=== PATIENT | female | born 1945 | race Caucasian/White ===

== ENCOUNTER 2016-11-24 08:09 | Day surgery (SDC) | payer MEDICARE, MEDICAID ==
[~2016-11-24 08:09] MED LIST: Lidocaine 1%/Sod Bicarbonate in NS 8.4% 1 ML Syringe IV PRN; Sodium Chloride 0.9% 10 ML Syringe FLUSH PRN
[2016-11-24] MEDS ORDERED: Lidocaine 1% 2 ML SDV ONE ×2 (09:14→09:15)
[2016-11-24] MEDS ORDERED: Propofol 200 MG/20 ML SDV ONE ×2 (09:14→10:27)
[2016-11-24] MEDS: Lactated Ringers 1,000 ML IV SCH (09:15)
--- NOTE | 2016-11-24 09:47 | PCM.PREANE ---
Preanesthetic Assessment - ANESTHESIA/TRANSFUSION/FAMILY HX Anesthesia/Transfusion History: No Prior Transfusion(s), Prior Anesthesia Family History of Anesthesia Reaction: No - REVIEW OF SYSTEMS Constitutional: Reports: no symptoms MUD MIXER: Reports: seizure (seizure disorder ) Respiratory: Reports: no symptoms Cardiovascular: Reports: no symptoms (history of sick sinus syndrome ) GI: Reports: no symptoms Other: Reports: thyroid problems (hypothyroidism resutling from lithum use as a mood stablizer ) - PHYSICAL ASSESSMENT O2 Sat by Pulse Oximetry: 90 RR: 16 Vital Signs: Last Vital Signs Temp 36.6 C 11/24/16 08:20 Pulse 95 11/24/16 08:20 Resp 16 11/24/16 08:20 BP 146/78 H 11/24/16 08:20 Pulse Ox 90 L 11/24/16 08:20 Height: 1.55 m Weight: 78.018 kg NPO Status Date: 11/23/16 NPO Status Time: 20:00 ASA Class: 3 Mental Status: other (since 17 months seizure dysorder, cerebral defect diagnosed, 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) Airway Class: Mallampati = 3 Dentition: Reports: edentulous Thyro-Mental Finger Breadths: 2 Mouth Opening Finger Breadths: 5 ROM/Head Extension: full Respiratory Status: lungs clear to auscultation bilaterally Cardiovascular Status: regular rate & rhythm, normal S1, S2, no murmur, blood pressure WNL - ALLERGIES Allergies/Adverse Reactions: Allergies Allergy/AdvReac Type Severity Reaction Status Date / Time No Known Allergies Allergy Verified 11/23/16 16:16 - BLOOD Blood Available: No - ANESTHESIA PLAN Preop Beta Saba: Yes Anesthesia Type Planned: MAC - ACKNOWLEDGEMENTS Pt an appropriate candidate for the planned anesthesia: Yes Alternatives and risks of anesthesia discussed w pt/guardian: Yes Pt/Guardian understands and agree with anesthesia plan: Yes PreAnesthesia Questionnaire HEENT History: Reports: None Cardiovascular History: Reports: Arrhythmia, Pacemaker Respiratory History: Reports: None Gastrointestinal History: Reports: Chronic constipation Genitourinary History: Reports: None [employer] History: Reports: None Musculoskeletal History: Reports: None Neurological History: Reports: Seizure, Other (see below) Other Neuro History: Hemiparesis to left side Psychiatric History: Reports: Bipolar Endocrine/Metabolic History: Reports: Hypothyroidism Hematologic History: Reports: None Immunologic History: Reports: None Oncologic (Cancer) History: Reports: Breast Dermatologic History: Reports: None - Past Surgical History HEENT Surgical History: Reports: None Cardiovascular Surgical History: Reports: Pacer Respiratory Surgical History: Reports: None GI Surgical History: Reports: Colonoscopy Female Surgical History: Reports: Mastectomy, Other (see below) Endocrine Surgical History: Reports: None Neurological Surgical History: Reports: None Musculoskeletal Surgical History: Reports: None Oncologic Surgical History: Reports: Mastectomy Other Oncologic Surgeries/Procedures: Bilateral mastectomy Dermatological Surgical History: Reports: None - SUBSTANCE USE Smoking Status *Q: Never Smoker Recreational Drug Use History: No - HOME MEDS Home Medications: Home Meds Bisacodyl [Dulcolax] 10 mg RECTAL DAILY PRN 11/23/16 [History] Calcium Carbonate/Vitamin D3 [Calcium 600 + Vit D Tablet] 1 tab PO DAILY [History] Diazepam [Valium Intensol 5 MG/ML] 5 mg PO ASDIRECTED PRN 11/23/16 [History] Docusate Sodium [Doc-Q-Lace] 100 mg PO BID 11/23/16 [History] Esomeprazole Magnesium [Nexium] 40 mg PO DAILY 11/23/16 [History] Krill/Gatzke-3/Dha/Epa/Lipids [Krill Oil 300 mg Softgel] 300 mg PO BID 11/23/16 [ History] Lactulose 10 gm PO DAILY 11/23/16 [History] Levothyroxine 112 mcg PO DAILY 11/23/16 [History] Metoprolol Tartrate 12.5 mg PO BID 11/23/16 [History] Multivit-Min/FA/Lycopene/Lut [Certavite Sr with Lutein Tab] 1 each PO DAILY 10/11 [History] OXcarbazepine [Trileptal] 600 mg PO BID 11/23/16 [History] PHENobarbital 32.4 mg PO BEDTIME 11/23/16 [History] Psyllium Seed/Aspartame [Natural Fiber Powder] 1 dose PO TID 11/23/16 [History] Sennosides [Senna] 2 tab PO DAILY 11/23/16 [History] Topiramate [Topamax] 50 mg PO TID 11/23/16 [History] risperiDONE [Risperdal] 0.5 mg PO BID 11/23/16 [History] - CURRENT (IN HOUSE) MEDS Current Meds: Current Medications Lactated Ringer's (Ringers, Lactated) 1,000 mls @ 125 mls/hr IV ASDIRECTED BARBARA Last Admin: 11/24/16 09:15 Dose: 125 mls/hr Lidocaine/Sodium Bicarbonate (Buffered Lidocaine 1% In Ns 8.4%) 0.25 ml IV ONETIME PRN PRN Reason: Prior to IV Start Sodium Chloride (Saline Flush) 10 ml FLUSH ASDIRECTED PRN PRN Reason: Keep Vein Open Discontinued Medications Lidocaine HCl (Lidocaine 1%) Confirm Administered Dose 2 ml .ROUTE .STK-MED ONE Stop: 11/24/16 09:15 Lidocaine HCl (Lidocaine 1%) Confirm Administered Dose 2 ml .ROUTE .STK-MED ONE Stop: 11/24/16 09:16 Propofol (Diprivan 20 Ml) Confirm Administered Dose 200 mg .ROUTE .STK-MED ONE Stop: 11/24/16 09:15
--- NOTE | 2016-11-24 11:00 | PCM48HPAN ---
Post Anesthesia Note - EVALUATION WITHIN 48HRS OF ANESTHETIC Vital Signs in Normal Range: Yes Patient Participated in Evaluation: Yes Respiratory Function Stable: Yes Airway Patent: Yes Cardiovascular Function Stable: Yes Hydration Status Stable: Yes Pain Control Satisfactory: Yes Nausea and Vomiting Control Satisfactory: Yes Mental Status Recovered: Yes (at patient baseline )
--- NOTE | 2016-11-24 11:00 | PCM.OPNOTE ---
- General Post-Op/Procedure Note Date of Surgery/Procedure: 11/24/16 Operative Procedure(s): colonoscopy to cecum Pre Op Diagnosis: abnormal CT scan of abdomen showing lesion in the colon Post-Op Diagnosis: Same Anesthesia Technique: MAC Primary Surgeon: Johnnie Gomez EBL in mLs: 0 Complications: None Condition: Good
[2016-11-24 11:01] VITALS: BP 132/45
--- NOTE | 2016-11-24 11:09 | CR ---
Abdomen: Supine view of the abdomen was obtained. Colonoscope is identified terminating in the approximate transverse colon. Increased gas within the colon compatible with the procedure. No additional abnormality is appreciated on this limited study. Impression: 1. Findings as noted above. Diagnostic code #2
--- NOTE | 2016-11-25 07:22 | OR ---
DATE OF OPERATION: 11/24/2016 SURGEON: Johnnie Gomez MD PREOPERATIVE DIAGNOSIS: Abnormal CT scan showing possible obstructive lesion in the sigmoid colon. POSTOPERATIVE DIAGNOSIS: Abnormal CT scan showing possible obstructive lesion in the sigmoid colon. OPERATION PERFORMED: Colonoscopy to the cecum. FINDINGS: A large sigmoid loop, but no angiodysplasia, neoplasia, large tumor masses, ulcerations, or diverticulum. ANESTHESIA: Done under IV sedation. RECOMMENDATION: No further screening colonoscopies. DESCRIPTION OF PROCEDURE: The patient was taken to the endoscopy suite, connected to monitoring equipment and given IV sedation. The patient was placed in the left lateral position. The perianal area showed some prodding hemorrhoids. Rectal exam showed good sphincter tone. A video Olympus colonoscope was introduced without problem up to what appeared to be the transverse colon. The anatomy was obscured and the scope would not advance further. A flat plate of the abdomen then demonstrated the large loop in the sigmoid. The patient was then placed in left lateral position, by external pressure, was able to advance the scope into the cecum. Prep was adequate. [place] [employer] score grade B throughout the colon. The scope was slowly withdrawn showing the cecum, ascending colon, transverse colon, descending colon, sigmoid colon, and rectum. Retroflexed view was not done. The patient tolerated the procedure, sent to recovery room in a stable condition. She will be followed up by Dr. Estrada. ESTIMATED BLOOD LOSS: MMODAL /[id number]
== END 2016-11-24 11:31 | disposition home or self-care (01) ==
LOC: JD.SDS 08:09
PROVIDERS: ATTEND Surgery
PROC: 0DJD8ZZ Inspection of Lower Intestinal Tract, Via Natural or Artificial Opening Endoscopic (ICD-10-PCS; principal; 2016-11-24)
DX: K56.2 Volvulus (principal); F31.9 Bipolar disorder, unspecified; G81.94 Hemiplegia, unspecified affecting left nondominant side; F79 Unspecified intellectual disabilities; G40.909 Epilepsy, unspecified, not intractable, without status epilepticus; I49.5 Sick sinus syndrome; E03.9 Hypothyroidism, unspecified; K59.09 Other constipation; Z85.3 Personal history of malignant neoplasm of breast; Z95.0 Presence of cardiac pacemaker; Z90.13 Acquired absence of bilateral breasts and nipples; Z98.890 Other specified postprocedural states; Z79.899 Other long term (current) drug therapy
CPT/HCPCS: 45378; 74000; J7120; J2704

== ENCOUNTER 2020-04-01 17:02 | Inpatient (IN) | payer MEDICARE, MEDICAID ==
--- NOTE | 2020-04-01 17:27 | EDM.PDOC ---
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 Estrada). Apparently she has had a 30 pound weight loss over the last 3 months. She is not eaten much at all for the last week. She is an obvious declining level of health. Her CODE STATUS is DO NOT RESUSCITATE do not ventilate. [address] Estrada performed was a chemistry panel which revealed severe hypernatremia with a sodium of 164. The other tests that he ordered are send outs to [place] and will not be available until tomorrow. Patient is nonverbal and not able to offer any useful information. She is on a bowel care regimen and did have a normal soft bowel movement this morning. She wears depends and is incontinent of urine. He has a history of urinary tract infections. No documented fevers. No cough or sputum production. Onset: Unknown/Unsure, Other (There is to have a chronic underlying illness with a 30 pound weight loss over the last 3 months.) Duration: Chronic, Getting Worse (Not been able to eat or drink much at all for the last week.) Location: Reports: Generalized Quality: Reports: Other (Suffering from dehydration and severe hypernatremia) Severity: Severe Improves with: Reports: None Worsens with: Reports: None Context: Reports: Other (Patient is mentally handicapped and refuses food and fluids at this time.). Denies: Activity, Exercise, Lifting, Sick Contact, Trauma Associated Symptoms: Reports: Other (Anorexia). Denies: Nausea/Vomiting, Rash, Seizure, Shortness of Breath, Syncope Treatments HR OPERATIONS ADVISOR: Reports: Other (see below) (None.) - Related Data Allergies Allergy/AdvReac Type Severity Reaction Status Date / Time No Known Allergies Allergy Verified 04/01/20 17:08 Home Meds: Home Meds Bisacodyl [Dulcolax] 10 mg RECTAL DAILY PRN 11/23/16 [History] Calcium Carbonate/Vitamin D3 [Calcium 600 + Vit D Tablet] 1 tab PO DAILY 11/23/16 [History] Diazepam [Valium Intensol 5 MG/ML] 5 mg PO ASDIRECTED PRN 11/23/16 [History] Docusate Sodium [Doc-Q-Lace] 100 mg PO BID 11/23/16 [History] Esomeprazole Magnesium [Nexium] 40 mg PO DAILY 11/23/16 [History] Krill/[place]-3/Dha/Epa/Lipids [Krill Oil 300 mg Softgel] 300 mg PO BID 11/23/16 [History] Lactulose 10 gm PO DAILY 11/23/16 [History] Levothyroxine 100 mcg PO DAILY 11/23/16 [History] Metoprolol Tartrate 12.5 mg PO BID 11/23/16 [History] Multivit-Min/FA/Lycopen/Lutein [Certavite Sr with Lutein Tab] 1 each PO DAILY 11/23/16 [History] OXcarbazepine [Trileptal] 600 mg PO BID 11/23/16 [History] PHENobarbital 97.2 mg PO BEDTIME 11/23/16 [History] Psyllium Seed/Aspartame [Natural Fiber Powder] 1 dose PO TID 11/23/16 [History] Sennosides [Senna] 2 tab PO DAILY PRN 11/23/16 [History] Topiramate [Topamax] 50 mg PO TID 11/23/16 [History] risperiDONE [Risperdal] 0.5 mg PO BID 11/23/16 [History] Past Medical History HEENT History: Reports: Other (See Below) Other HEENT History: Limited communication/vocabulary Cardiovascular History: Reports: Arrhythmia, Pacemaker Respiratory History: Reports: None Gastrointestinal History: Reports: Chronic Constipation Genitourinary History: Reports: None MACHINE SET UP OPERATOR History: Reports: None Musculoskeletal History: Reports: Other (See Below) Other Musculoskeletal History: bony deformities, flat feet, abnormal posture Neurological History: Reports: Seizure, Other (See Below) Other Neuro History: 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 Endocrine/Metabolic History: Reports: Hypothyroidism, Other (See Below) Other Endocrine/Metabolic History: Hypernatremia Hematologic History: Reports: None Immunologic History: Reports: None Oncologic (Cancer) History: Reports: Breast Dermatologic History: Reports: None - Infectious Disease History Infectious Disease History: Reports: None - Past Surgical History HEENT Surgical History: Reports: None Cardiovascular Surgical History: Reports: Pacer Respiratory Surgical History: Reports: None Female Surgical History: Reports: Mastectomy, Other (See Below) Endocrine Surgical History: Reports: None Musculoskeletal Surgical History: Reports: None Oncologic Surgical History: Reports: Mastectomy Other Oncologic Surgeries/Procedures: Bilateral mastectomy Dermatological Surgical History: Reports: None Social & Family History - Family History Family Medical History: Noncontributory - Tobacco Use Smoking Status *Q: Never Smoker - Caffeine Use Caffeine Use: Reports: None - Recreational Drug Use Recreational Drug Use: No - Living Situation & Occupation Living situation: Reports: Single Occupation: Disabled Social History Comment: He lives at able alf ED ROS GENERAL - Review of Systems Review Of Systems: See Below Constitutional: Reports: Malaise, Weakness, Fatigue, Weight Loss (30 pound weight loss apparently over the last [address] Estrada`s office). Denies: Fever, Chills HEENT: Reports: No Symptoms Respiratory: Denies: Cough, Sputum Cardiovascular: Denies: Blood Pressure Problem, Claudication, Orthopnea Endocrine: Reports: Other (Anorexia) GI/Abdominal: Reports: Anorexia : Reports: No Symptoms Musculoskeletal: Reports: Other (Does not walk. She is lifted by Jan lift and is otherwise wheelchair-bound. She has flexion contractures of hands wrists elbows knees and hips.) Skin: Reports: No Symptoms Neurological: Reports: Other (Winters is mentally handicapped. She is nonverbal) Hematologic/Lymphatic: Reports: No Symptoms Immunologic: Reports: No Symptoms ED EXAM, GENERAL - Physical Exam Exam: See Below Exam Limited By: Physical Impairment (Is mentally handicapped and nonverbal.) General Appearance: Lethargic Eye Exam: Bilateral Eye: Normal Inspection (No scleral icterus or blepharal pallor.) Throat/Mouth: Other (Is very dry and coated.) Head: Atraumatic ( No signs of oropharyngeal infection.), Normocephalic Neck: Normal Inspection, Limited Range of Motion (She appears to have very limited range of motion of her cervical spine). No: Full Range of Motion ( partially due to resistance but I believe partially due to underlying arthritic change.), Carotid Bruit, Lymphadenopathy (L), Lymphadenopathy (R), Thyromegaly Respiratory/Chest: Lungs Clear, Normal Breath Sounds, Respiratory Distress (Kidney at rest 20/min. O2 sats 98% on room air), Decreased Breath Sounds (Breast as the lower 20% of the lungs posteriorly.) Cardiovascular: No Edema, No Gallop (And his tachycardia at rest.), No JVD, No Murmur, No Rub, Tachycardia, Other (Pacemaker left upper anterior chest.). No: Normal Peripheral Pulses Peripheral Pulses: 2+: Carotid (L), Carotid (R), Posterior Tibial (L), Posterior Tibial (R), Dorsalis Pedis (L), Dorsalis Pedis (R) GI/Abdominal: Normal Bowel Sounds, Soft, Non-Tender, No Organomegaly, No Abnormal Bruit, No Mass, Pelvis Stable Back Exam: Other (These deformities of the back. Lying in the position left lateral decubitus on exam.) Extremities: No Pedal Edema, Other (Extreme contractures of knees hips wrists elbows) Neurological: Other (Unable to ascertain alertness but she does make eye contact but she is nonverbal.) Skin Exam: Warm, Intact, Normal Color, No Rash, Other (Not feel like she is warm to palpation.) Course - Vital Signs Last Recorded V/S: Last Vital Signs Temp 35.7 C L 04/01/20 17:12 Pulse 113 H 04/01/20 17:12 Resp 20 04/01/20 17:12 BP 119/75 04/01/20 17:12 Pulse Ox 98 04/01/20 17:12 - Orders/Labs/Meds Orders: Active Orders 24 hr Category Date Time Status EKG Documentation Completion [RC] STAT Care 04/01/20 17:25 Active Hough Catheter Insertion [Insert Urinary Catheter] [OM. Care 04/01/20 18:30 Ordered PC] Q24H Urinary Catheter Assessment [RC] ASDIRECTED Care 04/01/20 19:03 Active C-REACTIVE PROTEIN [CHEM] Stat Lab 04/01/20 17:40 Results CARBAMAZEPINE [REF] Stat Lab 04/01/20 17:40 Received COMPREHENSIVE METABOLIC PN,CMP [CHEM] Stat Lab 04/01/20 17:40 Results CORONAVIRUS COVID-19 CONNER [MOLEC] Stat Lab 04/01/20 18:20 Received INR,PT,PROTHROMBIN TIME [COAG] Stat Lab 04/01/20 18:27 Received LIPASE [CHEM] Stat Lab 04/01/20 17:40 Results MAGNESIUM [CHEM] Stat Lab 04/01/20 17:40 Results OSMOLALITY,SERUM [CHEM] Stat Lab 04/01/20 17:40 Results PRO B-TYPE NATRIUR PEPT,BNPPRO [CHEM] Stat Lab 04/01/20 17:40 Received PTT,PARTIAL THROMBOPLSTIN TIME [COAG] Stat Lab 04/01/20 18:27 Received T4 FREE [CHEM] Stat Lab 04/01/20 17:40 Results TROPONIN I [CHEM] Stat Lab 04/01/20 17:40 Results TSH [CHEM] Stat Lab 04/01/20 17:40 Results Dextrose 5%-0.45% NaCl [Dextrose 5%-1/2 NS] 1,000 ml Med 04/01/20 17:30 Active IV ASDIRECTED Medication Orders Dextrose/Sodium Chloride (Dextrose 5%-1/2 Ns) 1,000 mls @ 125 mls/hr IV ASDIRECTED BARBARA Last Admin: 04/01/20 17:54 Dose: 125 mls/hr Documented by: DARIUS Labs: Laboratory Tests 04/01/20 04/01/20 04/01/20 Range/Units 17:40 17:40 17:40 WBC 7.92 (3.98-10.04) K/mm3 RBC 4.04 (3.98-5.22) M/mm3 Hgb 14.5 D (11.2-15.7) gm/dl Hct 45.2 H (34.1-44.9) % MCV 111.9 H D (79.4-94.8) fl MCH 35.9 H (25.6-32.2) pg MCHC 32.1 L (32.2-35.5) g/dl RDW Std Deviation 61.2 H (36.4-46.3) fL Plt Count 346 D (182-369) K/mm3 MPV 10.9 (9.4-12.3) fl Neut % (Auto) 67.9 (34.0-71.1) % Lymph % (Auto) 22.5 (19.3-51.7) % [place] % (Auto) 8.8 (4.7-12.5) % Eos % (Auto) 0.1 L (0.7-5.8) Baso % (Auto) 0.6 (0.1-1.2) % Neut # (Auto) 5.37 (1.56-6.13) K/mm3 Lymph # (Auto) 1.78 (1.18-3.74) K/mm3 [place] # (Auto) 0.70 H (0.24-0.36) K/mm3 Eos # (Auto) 0.01 L (0.04-0.36) K/mm3 Baso # (Auto) 0.05 (0.01-0.08) K/mm3 Manual Slide Review Abnormal smear Sodium 162 H* D (136-145) mEq/L Potassium 4.5 (3.5-5.1) mEq/L Chloride 120 H (98-107) mEq/L Carbon Dioxide 17 L (21-32) mEq/L Anion Gap 29.5 H (5-15) BUN 61 H D (7-18) mg/dL Creatinine 2.4 H D (0.55-1.02) mg/dL Est Cr Clr Drug Dosing 15.28 mL/min Estimated GFR (MDRD) 20 (>60) mL/min BUN/Creatinine Ratio 25.4 H (14-18) Glucose 118 H (83-115) mg/dL Lactic Acid 2.3 H* (0.4-2.0) mmol/L Calcium 11.2 H D (8.5-10.1) mg/dL Magnesium 2.6 H (1.8-2.4) mg/dl Total Bilirubin 0.3 (0.2-1.0) mg/dL AST 28 (15-37) U/L ALT 39 (14-59) U/L Alkaline Phosphatase 93 (46-116) U/L Troponin I < 0.017 (0.00-0.056) ng/mL C-Reactive Protein <0.2 (<1.0) mg/dL Total Protein 7.6 (6.4-8.2) g/dl Albumin 3.0 L (3.4-5.0) g/dl Globulin 4.6 gm/dL Albumin/Globulin Ratio 0.7 L (1-2) Lipase 103 (73-393) U/L Free T4 0.48 L (0.76-1.46) ng/dL TSH 3rd Generation 3.828 H (0.358-3.74) uIU/mL Urine Color (Yellow) Urine Appearance (Clear) Urine pH (5.0-8.0) Ur Specific [place] (1.005-1.030) Urine Protein (Negative) Urine Glucose (UA) (Negative) Urine Ketones (Negative) Urine Occult Blood (Negative) Urine Nitrite (Negative) Urine Bilirubin (Negative) Urine Urobilinogen (0.2-1.0) Ur Leukocyte Esterase (Negative) Urine RBC (0-5) /hpf Urine WBC (0-5) /hpf Ur Squamous Epith Cells (0-5) /hpf Urine Bacteria (FEW) /hpf Urine Mucus (FEW) /hpf Ur Random Sodium (40-220) mEq/L 04/01/20 04/01/20 Range/Units 17:40 17:40 WBC (3.98-10.04) K/mm3 RBC (3.98-5.22) M/mm3 Hgb (11.2-15.7) gm/dl Hct (34.1-44.9) % MCV (79.4-94.8) fl MCH (25.6-32.2) pg MCHC (32.2-35.5) g/dl RDW Std Deviation (36.4-46.3) fL Plt Count (182-369) K/mm3 MPV (9.4-12.3) fl Neut % (Auto) (34.0-71.1) % Lymph % (Auto) (19.3-51.7) % [place] % (Auto) (4.7-12.5) % Eos % (Auto) (0.7-5.8) Baso % (Auto) (0.1-1.2) % Neut # (Auto) (1.56-6.13) K/mm3 Lymph # (Auto) (1.18-3.74) K/mm3 [place] # (Auto) (0.24-0.36) K/mm3 Eos # (Auto) (0.04-0.36) K/mm3 Baso # (Auto) (0.01-0.08) K/mm3 Manual Slide Review Sodium (136-145) mEq/L Potassium (3.5-5.1) mEq/L Chloride (98-107) mEq/L Carbon Dioxide (21-32) mEq/L Anion Gap (5-15) BUN (7-18) mg/dL Creatinine (0.55-1.02) mg/dL Est Cr Clr Drug Dosing mL/min Estimated GFR (MDRD) (>60) mL/min BUN/Creatinine Ratio (14-18) Glucose (83-115) mg/dL Lactic Acid (0.4-2.0) mmol/L Calcium (8.5-10.1) mg/dL Magnesium (1.8-2.4) mg/dl Total Bilirubin (0.2-1.0) mg/dL AST (15-37) U/L ALT (14-59) U/L Alkaline Phosphatase (46-116) U/L Troponin I (0.00-0.056) ng/mL C-Reactive Protein (<1.0) mg/dL Total Protein (6.4-8.2) g/dl Albumin (3.4-5.0) g/dl Globulin gm/dL Albumin/Globulin Ratio (1-2) Lipase (73-393) U/L Free T4 (0.76-1.46) ng/dL TSH 3rd Generation (0.358-3.74) uIU/mL Urine Color Dark yellow (Yellow) Urine Appearance Slt cloudy H (Clear) Urine pH 5.0 (5.0-8.0) Ur Specific [place] > or = 1.030 (1.005-1.030) Urine Protein 1+ H (Negative) Urine Glucose (UA) Negative (Negative) Urine Ketones Negative (Negative) Urine Occult Blood Negative (Negative) Urine Nitrite Negative (Negative) Urine Bilirubin 1+ H (Negative) Urine Urobilinogen 0.2 (0.2-1.0) Ur Leukocyte Esterase 1+ H (Negative) Urine RBC 0-5 (0-5) /hpf Urine WBC 40-50 H (0-5) /hpf Ur Squamous Epith Cells 0-5 (0-5) /hpf Urine Bacteria Many H (FEW) /hpf Urine Mucus Not seen (FEW) /hpf Ur Random Sodium 26 L (40-220) mEq/L Meds: Medications Generic Name Dose Route Start Last Admin Trade Name Freq PRN Reason Stop Dose Admin Dextrose/Sodium Chloride 1,000 mls @ 125 mls/hr 04/01/20 17:30 04/01/20 17:54 Dextrose 5%-1/2 Ns IV 125 mls/hr ASDIRECTED BARBARA Administration - Radiology Interpretation Free Text/Narrative:: 75-year-old female presents to the ED from her primary care physician's office--Dr Estrada. She has a history of not eating or drinking much for the last week. She is severely mentally handicapped since . She has a documented 30 pound weight loss over the last 3 months. This is according to Dr. Estrada. Patient is nonverbal and therefore not able to provide any useful history. A bit of information was obtained from 1 of her care providers that attended during the ED. Lamination reveals her to be afebrile. She does make eye contact. She lies in the left lateral position and has flexion contractures of hands wrists elbows and shoulders. She also has flexion contractures of her hips and knees. She is lifted by a Jan lift. She is wheelchair or bedbound. [address] of [address] labs [address] Dr. Estrada identified to be abnormal was a serum sodium of 164 i.e. severe hyponatremia which carries a very grave prognosis. She has had some difficulties with thyroid dysfunction but Dr. Estrada was not able to obtain the results today as they are send outs to [place]. Concern is that she may have an underlying malignancy to contribute to her 30 pound weight loss over the last 3 months versus malnutrition. She lives in a alf setting. Her CODE STATUS is DO NOT RESUSCITATE or DO NOT INTUBATE. Plan IV will be D5 one half normal saline at 125 mils per hour to slowly bring down her serum sodium level. Other labs of course have been ordered and a chest x-ray and ECG. - Re-Assessments/Exams Free Text/Narrative Re-Assessment/Exam: 04/01/20 18:16 White count is normal at 7.92. Differential shows 68% neutrophils on the auto differential. Hemoglobin is 14.5 with hematocrit of 45.2. MCV is markedly elevated at 111.9. Platelet counts 346,000. Manual slide being reviewed. Urinalysis obtained by catheterization shows slightly cloudy urine with 1+ proteinuria 1+ bilirubin 1+ leukocyte esterase. The micro is pending x-ray was done portably but was difficult due to the position of the patient. It turned out be more of a lateral x-ray than it did AP. The lungs are clear with no acute parenchymal changes. Tortuous thoracic aorta appreciated. Heart size appears to be within normal limits per portable technique. Pacemaker is noted left upper anterior chest. 04/01/20 18:41 laboratory called over indicates that her lactic acid is 2.3. 04/01/20 19:23 This slide reveals moderate macrocytosis. no band cells reported. Catherine confirms an elevated sodium at 162. Potassium is 4.5. Chloride is 120 with a bicarb of 17. Anion gap is elevated at 29.5. BUN is 61 with a creatinine of 2.4. GFR is down to 20 i.e. stage IV renal insufficiency. Glucose is 118. Serum osmolality is pending. Lactic acid is elevated at 2.3. Calcium is elevated at 11.2. And ionized calcium will be ordered. Magnesium is elevated at 2.6. Liver function is normal. Troponin I is less than 0.017. C- reactive protein is less than 0.2. Total protein is 7.6 with an albumin fraction low at 3.0. Globulin is 4.6. Lipase is 103. Free T4 is 0.48 which is very low. TSH is 3.828 which is mildly elevated indicating subclinical hypothyroidism. Random urine sodium is 26. The micro shows 1+ leukocyte gideon rase and 40-50 white blood cells per high-power field with many bacteria appreciated. Urine culture ordered. Will be started on Rocephin 2 g intravenously at that time for urinary tract infection. We will be D5 one half normal saline at 125 mils per hour to slowly lower her serum sodium level. Will be admitted to the [facility] floor per Dr. oCrdero. I will write the bridge orders at this time. Time with a serum sodium of 162 the prognosis is extremely guarded. The 30-day mortality approaches 100%. Departure - Departure Time of Disposition: 19:48 Disposition: Admitted As Inpatient 66 Condition: Critical Clinical Impression: Hypernatremia, Metabolic acidosis, Subclinical hypothyroidism - Discharge Information *PRESCRIPTION DRUG MONITORING PROGRAM REVIEWED*: Not Applicable *COPY OF PRESCRIPTION DRUG MONITORING REPORT IN PATIENT AICHA: Not Applicable Referrals: Mark Estrada MD [Primary Care Provider] - Forms: ED Department Discharge Sepsis Event Note (ED) - Evaluation Sepsis Screening Result: Possible Sepsis Risk - Focused Exam Vital Signs: Vital Signs Temp Pulse Resp BP Pulse Ox 04/01/20 17:12 35.7 C L 113 H 20 119/75 98 - My Orders Last 24 Hours: My Active Orders 04/01/20 17:25 EKG Documentation Completion [RC] STAT 04/01/20 17:30 Dextrose 5%-0.45% NaCl [Dextrose 5%-1/2 NS] 1,000 ml IV ASDIRECTED 04/01/20 17:40 C-REACTIVE PROTEIN [CHEM] Stat CARBAMAZEPINE [REF] Stat COMPREHENSIVE METABOLIC PN,CMP [CHEM] Stat LIPASE [CHEM] Stat MAGNESIUM [CHEM] Stat OSMOLALITY,SERUM [CHEM] Stat PRO B-TYPE NATRIUR PEPT,BNPPRO [CHEM] Stat T4 FREE [CHEM] Stat TROPONIN I [CHEM] Stat TSH [CHEM] Stat 04/01/20 18:20 CORONAVIRUS COVID-19 CONNER [MOLEC] Stat 04/01/20 18:27 INR,PT,PROTHROMBIN TIME [COAG] Stat PTT,PARTIAL THROMBOPLSTIN TIME [COAG] Stat 04/01/20 18:30 Hough Catheter Insertion [Insert Urinary Catheter] [OM.PC] Q24H 04/01/20 19:03 Urinary Catheter Assessment [RC] ASDIRECTED - Assessment/Plan Last 24 Hours: My Active Orders 04/01/20 17:25 EKG Documentation Completion [RC] STAT 04/01/20 17:30 Dextrose 5%-0.45% NaCl [Dextrose 5%-1/2 NS] 1,000 ml IV ASDIRECTED 04/01/20 17:40 C-REACTIVE PROTEIN [CHEM] Stat CARBAMAZEPINE [REF] Stat COMPREHENSIVE METABOLIC PN,CMP [CHEM] Stat LIPASE [CHEM] Stat MAGNESIUM [CHEM] Stat OSMOLALITY,SERUM [CHEM] Stat PRO B-TYPE NATRIUR PEPT,BNPPRO [CHEM] Stat T4 FREE [CHEM] Stat TROPONIN I [CHEM] Stat TSH [CHEM] Stat 04/01/20 18:20 CORONAVIRUS COVID-19 CONNER [MOLEC] Stat 04/01/20 18:27 INR,PT,PROTHROMBIN TIME [COAG] Stat PTT,PARTIAL THROMBOPLSTIN TIME [COAG] Stat 04/01/20 18:30 Hough Catheter Insertion [Insert Urinary Catheter] [OM.PC] Q24H 04/01/20 19:03 Urinary Catheter Assessment [RC] ASDIRECTED
[2020-04-01] MEDS ORDERED: Dextrose 5%-0.45% NaCl 1,000 ML IV SCH ×2 (17:30→22:15)
--- NOTE | 2020-04-01 18:09 | CR ---
Chest: Frontal view of the chest was obtained. Comparison: Prior chest x-ray of 09/20/12. Lungs are clear with no acute parenchymal change. Tortuous thoracic aorta is seen. Heart size appears within normal limits for portable technique. Pacemaker is noted. Bony structures are grossly intact. Impression: 1. Nothing acute is appreciated on portable chest x-ray. Diagnostic code #2 This report was dictated in MDT
[2020-04-01] MEDS ORDERED: Acetaminophen 325 MG Tab PO PRN (22:03)
[2020-04-01] MEDS ORDERED: Ondansetron 4 MG/2 ML SDV IVPUSH PRN (22:05)
[2020-04-01] MEDS ORDERED: Metoprolol Tartrate 25 MG Tab PO ONE (22:06)
[2020-04-02] MEDS: Dextrose 5% in Water 1,000 ML IV SCH ×3 (02:34→21:54)
--- NOTE | 2020-04-02 03:01 | PCM.HP.2 ---
H&P History of Present Illness - General Date of Service: 04/01/20 Admit Problem/Dx: Admission Diagnosis/Problem Admission Diagnosis/Problem Hypernatremia - History of Present Illness Initial Comments - Free Text/Narative: PATIENT IS NON-VERBAL SO H&P OBTAINED BY CHART REVIEW AND VERBAL STAFF REPORT 75-year-old female with past medical history of mental disability who is sent to the ED from her PCPs office for abnormal labs. As per transfer note patient was getting routine labs performed and a Na level of 164 was identified for which she was referred here. Of note: - Oral intake has been minimal in the past week - Has scheduled bowel regimen, with last BM this morning - No abnormal vital signs have been documented - Related Data Allergies/Adverse Reactions: Allergies Allergy/AdvReac Type Severity Reaction Status Date / Time No Known Allergies Allergy Verified 04/02/20 03:11 Home Medications: Home Meds Calcium Carbonate/Vitamin D3 [Calcium 600 + Vit D Tablet] 1 tab PO DAILY 11/23/16 [History] Diazepam [Valium Intensol 5 MG/ML] 5 mg PO ASDIRECTED PRN 11/23/16 [History] Docusate Sodium [Doc-Q-Lace] 100 mg PO BID 11/23/16 [History] Krill/[place]-3/Dha/Epa/Lipids [Krill Oil 300 mg Softgel] 300 mg PO BID 11/23/16 [History] Lactulose 10 gm PO DAILY 11/23/16 [History] Levothyroxine 100 mcg PO DAILY 11/23/16 [History] Metoprolol Tartrate 12.5 mg PO BID 11/23/16 [History] Multivit-Min/FA/Lycopen/Lutein [Certavite Sr with Lutein Tab] 1 each PO DAILY 11/23/16 [History] OXcarbazepine [Trileptal] 600 mg PO BID 11/23/16 [History] PHENobarbital 97.2 mg PO BEDTIME 11/23/16 [History] Sennosides [Senna] 2 tab PO DAILY 11/23/16 [History] Omeprazole 20 mg PO DAILY 04/01/20 [History] Urea [Urea 20% Crm] 1 applic TOP BEDTIME 04/01/20 [History] Valbenazine Tosylate [Ingrezza] 40 mg PO DAILY 04/01/20 [History] Acetaminophen [Acetaminophen ER] 650 mg PO TID 04/02/20 [History] Past Medical History HEENT History: Reports: Other (See Below) Other HEENT History: Limited communication/vocabulary Cardiovascular History: Reports: Arrhythmia, Pacemaker Respiratory History: Reports: None Gastrointestinal History: Reports: Chronic Constipation Genitourinary History: Reports: None [employer]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 Endocrine/Metabolic History: Reports: None, Hypothyroidism, Other (See Below) Other Endocrine/Metabolic History: Hypernatremia Hematologic History: Reports: None Immunologic History: Reports: None Oncologic (Cancer) History: Reports: Breast Dermatologic History: Reports: None - Infectious Disease History Infectious Disease History: Reports: None - Past Surgical History Head Surgeries/Procedures: Reports: None HEENT Surgical History: Reports: None Cardiovascular Surgical History: Reports: Pacer Respiratory Surgical History: Reports: None GI Surgical History: Reports: None Female Surgical History: Reports: Mastectomy, Other (See Below) Endocrine Surgical History: Reports: None Neurological Surgical History: Reports: None Musculoskeletal Surgical History: Reports: None Oncologic Surgical History: Reports: None, Mastectomy Other Oncologic Surgeries/Procedures: Bilateral mastectomy Dermatological Surgical History: Reports: None Social & Family History - Family History Family Medical History: Noncontributory - Tobacco Use Smoking Status *Q: Never Smoker Second Hand Smoke Exposure: No - Caffeine Use Caffeine Use: Reports: None - Recreational Drug Use Recreational Drug Use: No - Living Situation & Occupation Living situation: Reports: Single Occupation: Disabled H&P Review of Systems - Review of Systems: Review Of Systems: Unable To Obtain Reason Not Obtained: Patient is non verbal Exam - Exam Exam: See Below - Vital Signs Weight: 53.025 kg - Exam General: Lethargic HEENT: Other (oral mucosa is very dry, no lesions are appreciated) Neck: Trachea Midline. No: Full Range of Motion, Lymphadenopathy Lungs: Clear to Auscultation, Decreased Breath Sounds. No: Crackles, Rales, Rhonchi, Rub, Stridor Cardiovascular: Regular Rhythm, Tachycardia. No: Systolic Murmur, Diastolic Murmur, Rubs, Gallop/S3, Gallop/S4 GI/Abdominal Exam: Soft. No: Normal Bowel Sounds, Distended, Guarding, Rigid Extremities: Other (contractures of knees hips wrists elbows) Skin: Dry - Patient Data Result Diagrams: 04/01/20 17:40 04/01/20 17:40 Sepsis Event Note - Evaluation Sepsis Screening Result: No Definite Risk Current Stage of Sepsis: Ruled Out Reason for Ruling Out Sepsis: Lactic acidosis is secondary to hypovolemia - Problem List (1) Hyperosmolality and hypernatremia SNOMED Code(s): 710458166 ICD Code: E87.0 - HYPEROSMOLALITY AND HYPERNATREMIA Status: Acute Current Visit: Yes (2) Hypernatremia SNOMED Code(s): 368831780 ICD Code: E87.0 - HYPEROSMOLALITY AND HYPERNATREMIA Status: Acute Current Visit: Yes (3) High anion gap metabolic acidosis SNOMED Code(s): 60441873 ICD Code: E87.2 - ACIDOSIS Status: Acute Current Visit: Yes (4) Metabolic alkalosis SNOMED Code(s): 5315936 ICD Code: E87.3 - ALKALOSIS Status: Acute Current Visit: Yes (5) Acute kidney injury SNOMED Code(s): 71630676, 60491970 ICD Code: N17.9 - ACUTE KIDNEY FAILURE, UNSPECIFIED Status: Acute Current Visit: Yes (6) Chronic kidney disease (CKD), stage III (moderate) SNOMED Code(s): 269089301 ICD Code: N18.3 - CHRONIC KIDNEY DISEASE, STAGE 3 (MODERATE) Status: Acute Current Visit: Yes (7) Starvation ketoacidosis SNOMED Code(s): 50106015 ICD Code: E87.2 - ACIDOSIS Status: Acute Current Visit: Yes (8) Lactic acidosis SNOMED Code(s): 26868078 ICD Code: E87.2 - ACIDOSIS Status: Acute Current Visit: Yes (9) Macrocytosis without anemia SNOMED Code(s): 766160228 ICD Code: D75.89 - OTHER SPECIFIED DISEASES OF BLOOD AND BLOOD-FORMING ORGANS Status: Acute Current Visit: Yes (10) Hypermagnesemia SNOMED Code(s): 07606536 ICD Code: E83.41 - HYPERMAGNESEMIA Status: Acute Current Visit: Yes (11) Hypercalcemia SNOMED Code(s): 34791103 ICD Code: E83.52 - HYPERCALCEMIA Status: Acute Current Visit: Yes (12) Mental disability SNOMED Code(s): 35979040 ICD Code: F79 - UNSPECIFIED INTELLECTUAL DISABILITIES Status: Acute Current Visit: Yes (13) Bilateral knee contractures SNOMED Code(s): 68934016308398150 ICD Code: M24.561 - CONTRACTURE, RIGHT KNEE; M24.562 - CONTRACTURE, LEFT KNEE Status: Acute Current Visit: Yes (14) Constipation SNOMED Code(s): 30058239 ICD Code: K59.00 - CONSTIPATION, UNSPECIFIED Status: Acute Current Visit: No Qualifiers: Constipation type: slow transit constipation Qualified Code(s): K59.01 - Slow transit constipation (15) Bipolar disorder SNOMED Code(s): 10972073 ICD Code: F31.9 - BIPOLAR DISORDER, UNSPECIFIED Status: Acute Current Visit: Yes (16) Seizure disorder SNOMED Code(s): 934983615 ICD Code: G40.909 - EPILEPSY, UNSP, NOT INTRACTABLE, WITHOUT STATUS EPILEPTICUS Status: Acute Current Visit: Yes (17) Hypothyroidism, lithium induced SNOMED Code(s): 796253473594245 ICD Code: T56.891A - TOXIC EFFECT OF OTH METALS, ACCIDENTAL (UNINTENTIONAL), INIT; E03.2 - HYPOTHYROIDISM DUE TO MEDS AND OTH EXOGENOUS SUBSTANCES Status: Acute Current Visit: Yes Problem List Initiated/Reviewed/Updated: Yes Assessment/Plan Comment:: ASSESSMENT Minimal oral intake in past week, severely volume depleted which explains elevated ketones and lactic acid (NOT SEPTIC) - Hypernatremia likely multifactorial but mainly due to hypovolemia and poor oral intake UA is abnormal but patient is incontinent of urine, afebrile Baseline GFR on file is 49, 20 today Regularly on bowel regimen --> last BM today in the AM No recent seizures Took all medications today in the AM PLAN Hyperosmolality and hypernatremia High anion gap metabolic acidosis, compensated Metabolic alkalosis Acute on chronic kidney disease (CKD), stage III (moderate) Starvation ketoacidosis Lactic acidosis Hypermagnesemia Hypercalcemia - Start D5W - Hough catheter to monitor urine output - Encourage oral intake once more alert Macrocytosis without anemia - Vitamin levels Bipolar disorder Seizure disorder Mental disability Bilateral knee contractures - Restart home medications once more alert - PRN Ativan for restlessness Chronic constipation -Monitor BMs Hypothyroidism, lithium induced - Continue home medications once more alert PROPHYLAXIS DVT- patient non-ambulatory GI- not indicated CODE STATUS: DNR/DNI DISPOSITION: Patient will be admitted to medical floor on IVF repletion and monitorization. note created after patient was seen - Mortality Measure Prognosis:: Poor
[2020-04-02] MEDS ORDERED: Dextrose 5% in Water 1,000 ML IV SCH (10:30)
[2020-04-02] MEDS: Potassium Chloride 10 MEQ in Premix Bag 1 BAG IV SCH ×4 (10:43→14:30)
--- NOTE | 2020-04-02 12:17 | PCM.PN ---
- General Info Date of Service: 04/02/20 Subjective Update: Overnight patient became significantly less responsive, came in to evaluate her and she was unarousable with stable vital signs except for hypothermia - Patient Data Vitals - Most Recent: Last Vital Signs Temp 95.9 F L 04/02/20 09:16 Pulse 85 04/02/20 09:16 Resp 16 04/02/20 09:16 BP 134/68 04/02/20 09:16 Pulse Ox 98 04/02/20 09:16 Weight - Most Recent: 53.025 kg - Exam General: Lethargic (but arousable) HEENT: No: Mucous Membr. Moist/[place] (dry but w/interval improvement) Lungs: Decreased Breath Sounds, Crackles. No: Rales, Rhonchi, Rub, Stridor, Wheezing Cardiovascular: Regular Rate, Regular Rhythm. No: Murmurs, Gallops, Rubs GI/Abdominal Exam: Soft, No Distention, No Mass. No: Normal Bowel Sounds (decreased frequency) Extremities: Other (severe contractures) Sepsis Event Note - Evaluation Sepsis Screening Result: No Definite Risk - Problem List & Annotations (1) Hyperosmolality and hypernatremia SNOMED Code(s): 781894863 Code(s): E87.0 - HYPEROSMOLALITY AND HYPERNATREMIA Status: Acute Current Visit: Yes (2) Hypernatremia SNOMED Code(s): 010636857 Code(s): E87.0 - HYPEROSMOLALITY AND HYPERNATREMIA Status: Acute Current Visit: Yes (3) High anion gap metabolic acidosis SNOMED Code(s): 60964319 Code(s): E87.2 - ACIDOSIS Status: Acute Current Visit: Yes (4) Metabolic alkalosis SNOMED Code(s): 2262681 Code(s): E87.3 - ALKALOSIS Status: Acute Current Visit: Yes (5) Acute kidney injury SNOMED Code(s): 85716626, 50331784 Code(s): N17.9 - ACUTE KIDNEY FAILURE, UNSPECIFIED Status: Acute Current Visit: Yes (6) Chronic kidney disease (CKD), stage III (moderate) SNOMED Code(s): 613865980 Code(s): N18.3 - CHRONIC KIDNEY DISEASE, STAGE 3 (MODERATE) Status: Acute Current Visit: Yes (7) Starvation ketoacidosis SNOMED Code(s): 64515258 Code(s): E87.2 - ACIDOSIS Status: Acute Current Visit: Yes (8) Lactic acidosis SNOMED Code(s): 44174736 Code(s): E87.2 - ACIDOSIS Status: Acute Current Visit: Yes (9) Macrocytosis without anemia SNOMED Code(s): 874655472 Code(s): D75.89 - OTHER SPECIFIED DISEASES OF BLOOD AND BLOOD-FORMING ORGANS Status: Acute Current Visit: Yes (10) Hypermagnesemia SNOMED Code(s): 03564938 Code(s): E83.41 - HYPERMAGNESEMIA Status: Acute Current Visit: Yes (11) Hypercalcemia SNOMED Code(s): 90211642 Code(s): E83.52 - HYPERCALCEMIA Status: Acute Current Visit: Yes (12) Mental disability SNOMED Code(s): 81203311 Code(s): F79 - UNSPECIFIED INTELLECTUAL DISABILITIES Status: Acute Current Visit: Yes (13) Bilateral knee contractures SNOMED Code(s): 32766207001990960 Code(s): M24.561 - CONTRACTURE, RIGHT KNEE; M24.562 - CONTRACTURE, LEFT KNEE Status: Acute Current Visit: Yes (14) Constipation SNOMED Code(s): 14840503 Code(s): K59.00 - CONSTIPATION, UNSPECIFIED Status: Acute Current Visit: No Qualifiers: Constipation type: slow transit constipation Qualified Code(s): K59.01 - Slow transit constipation (15) Bipolar disorder SNOMED Code(s): 16364852 Code(s): F31.9 - BIPOLAR DISORDER, UNSPECIFIED Status: Acute Current Visit: Yes (16) Seizure disorder SNOMED Code(s): 529352791 Code(s): G40.909 - EPILEPSY, UNSP, NOT INTRACTABLE, WITHOUT STATUS EPILEPTICUS Status: Acute Current Visit: Yes (17) Hypothyroidism, lithium induced SNOMED Code(s): 561132741542771 Code(s): T56.891A - TOXIC EFFECT OF OTH METALS, ACCIDENTAL (UNINTENTIONAL), INIT; E03.2 - HYPOTHYROIDISM DUE TO MEDS AND OTH EXOGENOUS SUBSTANCES Status: Acute Current Visit: Yes (18) Hypokalemia SNOMED Code(s): 60590147 Code(s): E87.6 - HYPOKALEMIA Status: Acute Current Visit: Yes - Problem List Review Problem List Initiated/Reviewed/Updated: Yes - Assessment Assessment:: 04/01/2020 Minimal oral intake in past week, severely volume depleted which explains elevated ketones and lactic acid (NOT SEPTIC) - Hypernatremia likely multifactorial but mainly due to hypovolemia and poor oral intake UA is abnormal but patient is incontinent of urine, afebrile Baseline GFR on file is 49, 20 today Regularly on bowel regimen --> last BM today in the AM No recent seizures Took all medications today in the AM Admitted on D5NS Decreased responsiveness and unarousable overnight Changed IVF to D5W and increased rate 04/02/2020 Na down from 161 to 158 K down from 3.3 to 3.1 Mg down from 2.6 to 2.1 GFR increased mildly from 20 to 22 Repeat lactic acid is normal Anion gap down from 29 to 24 BP trend 110-142/60-82 Tmax 99.5 HR trend 70-86x' SatO2 >95% on RA UO 2,300 Alertness level has not changed - Plan Plan:: Hyperosmolality and hypernatremia, improved High anion gap metabolic acidosis, compensated and improved Metabolic alkalosis Acute on chronic kidney disease (CKD), stage III (moderate), improved Starvation ketoacidosis Hypercalcemia - Continue D5W - Hough catheter care - NPO for now Macrocytosis without anemia - F/U on vitamin levels Bipolar disorder Seizure disorder Mental disability Bilateral knee contractures - Restart home medications once more alert - PRN Ativan for restlessness Chronic constipation -Monitor BMs Hypothyroidism, lithium induced - Continue home medications once more alert Hypermagnesemia, resolved Lactic acidosis, resolved PROPHYLAXIS DVT- patient non-ambulatory GI- not indicated CODE STATUS: DNR/DNI DISPOSITION: Patient will remain admitted to medical floor for IVF repletion and monitorization of electrolytes and mental status.
--- NOTE | 2020-04-02 13:17 | CR ---
Abdomen: Semi-upright view of the abdomen was obtained. Comparison: Previous abdominal x-ray of 03/16/19. Single loop of gas-filled bowel within the abdomen is partially visualized. This is most likely due to gas within the sigmoid colon which is felt to be within normal limits. Other gas is seen which also felt to be within normal limits. No free air is seen. Bony structures are osteopenic. Pacemaker is noted. Impression: 1. Nothing acute is seen on semi-upright abdominal x-ray. Diagnostic code #2 This report was dictated in MDT
[2020-04-02] MEDS ORDERED: PHENobarbital 32.4 MG Tab PO SCH (21:00)
[2020-04-02] MEDS: Metoprolol Tartrate 25 MG Tab PO SCH (21:11)
[2020-04-02] MEDS: Docusate Sodium 100 MG Cap PO SCH (21:11)
[2020-04-02] MEDS: UREA TOP SCH (21:11)
[2020-04-02] MEDS: OXcarbazepine 300 MG Tab PO SCH (21:11)
[2020-04-03] MEDS: Dextrose 5% in Water 1,000 ML IV SCH (08:49)
[2020-04-03] MEDS ORDERED: Valbenazine Tosylate [Ingrezza] 40 MG PO SCH (09:00)
[2020-04-03] MEDS: OXcarbazepine 300 MG Tab PO SCH ×2 (09:10→21:00)
[2020-04-03] MEDS: Docusate Sodium 100 MG Cap PO SCH ×2 (10:12→20:59)
[2020-04-03] MEDS: Lactulose Soln 10 GM/15 ML 30 ML UD Cup PO SCH (10:12)
[2020-04-03] MEDS: Sennosides 8.6 MG Tab PO SCH (10:12)
[2020-04-03] MEDS: Metoprolol Tartrate 25 MG Tab PO SCH ×2 (10:18→20:59)
[2020-04-03] MEDS ORDERED: Dextrose 5% in Water 1,000 ML IV SCH (10:30)
[2020-04-03] MEDS: Potassium Chloride 10 MEQ in Premix Bag 1 BAG IV SCH ×4 (11:07→14:48)
[2020-04-03] MEDS ORDERED: Magnesium Sulfate/Water 4 GM in Premix Bag 1 BAG IV ONE (14:30)
--- NOTE | 2020-04-03 16:35 | PCM.PN ---
- General Info Date of Service: 04/03/20 Admission Dx/Problem (Free Text): Admission Diagnosis/Problem Admission Diagnosis/Problem Hypernatremia 04/01/2020 75 year old female admitted to the floor from the ER after being sent to the ER from her primary care provider's office (Dr. Estrada). Apparently she has had a 30 pound weight loss over the last 3 months. She has not eaten much at all for the last week. She has an obvious declining level of health. Her CODE STATUS is DO NOT RESUSCITATE do not ventilate. Oral intake has been minimal in the past week Has scheduled bowel regimen, with last BM this morning No abnormal vital signs have been documented Start D5W Hough catheter to monitor urine output Encourage oral intake once more alert PRN Ativan for restlessness Monitor BMs DVT- patient non-ambulatory Patient will be admitted to medical floor on IVF repletion and monitorization. 04/02/2020 Na down from 161 to 158 K down from 3.3 to 3.1 Mg down from 2.6 to 2.1 GFR increased mildly from 20 to 22 Repeat lactic acid is normal Anion gap down from 29 to 24 BP trend 110-142/60-82 Tmax 99.5 HR trend 70-86x' SatO2 >95% on RA UO 2,300 Alertness level has not changed Patient will remain admitted to medical floor for IVF repletion and monitorization of electrolytes and mental status 04/03/2020 Oral intake has not changed Patient is non ambulatory Alertness level has not changed Discussed decreasing IV to 75 Discussed rechecking labs Discussed talking to the head person at [facility] about her being NPO and doing either a feeding tube or hospice Subjective Update: 04/03/2020 Oral intake has not changed Patient is non ambulatory Alertness level has not changed. p.e. vss lungs clear cor rrr s mur. abd benign.bs active . no tendernss organomegaly noted. neuro patient nonverbal. spong moves extremities not responding to name . occasional t.d movement rarely . lab na 140 k normal cl normal. hco3 still low. spot na low. lfts normal amylase and lipase normal . discussed with Dr Estrada no def. cause identified INGRESSA can cause ms alterations and consider mri but no focal findings on exam but exam very difficult. pituitary status check cortisol level in am . assess prolactin level . mri will require sedation and so ct scan preferred. Discussed decreasing IV to 75 Discussed rechecking labs Discussed talking to the head person at [facility] about her being NPO and doing either a feeding tube or hospice boh Functional Status: Reports: Other (still not eating or drinking) - Review of Systems General: Reports: Weakness, Fatigue HEENT: Reports: No Symptoms Pulmonary: Reports: No Symptoms Cardiovascular: Reports: No Symptoms Gastrointestinal: Reports: Decreased Appetite Genitourinary: Reports: Incontinence Musculoskeletal: Reports: No Symptoms Skin: Reports: No Symptoms Neurological: Reports: Confusion, Pre-Existing Deficit, Other (non verbal at baseline/interacts but barely rousable ) Psychiatric: Reports: No Symptoms - Patient Data Vitals - Most Recent: Last Vital Signs Temp 97.3 F 04/03/20 08:33 Pulse 95 04/03/20 10:18 Resp 20 04/03/20 08:33 BP 91/62 04/03/20 10:18 Pulse Ox 97 04/03/20 08:33 Weight - Most Recent: 59.874 kg I&O - Last 24 Hours: Intake & Output 04/02/20 04/03/20 04/03/20 22:59 06:59 14:59 Intake Total 0 0 Output Total 250 900 Balance -250 -900 Lab Results Last 24 Hours: Laboratory Results - last 24 hr 04/01/20 04/02/20 04/03/20 Range/Units 17:40 08:20 06:00 Sodium 140 D (136-145) mEq/L Potassium 2.9 L (3.5-5.1) mEq/L Chloride 105 D (98-107) mEq/L Carbon Dioxide 15 L (21-32) mEq/L Anion Gap 22.9 H (5-15) BUN 44 H (7-18) mg/dL Creatinine 1.5 H (0.55-1.02) mg/dL Est Cr Clr Drug Dosing 24.45 mL/min Estimated GFR (MDRD) 34 (>60) mL/min BUN/Creatinine Ratio 29.3 H (14-18) Glucose 100 (83-115) mg/dL Calcium 8.3 L (8.5-10.1) mg/dL Phosphorus 2.8 (2.6-4.7) mg/dL Magnesium 1.6 L (1.8-2.4) mg/dl Carbamazepine <2.0 L (4.0-12.0) ug/mL Phenobarbital 23.7 (10.0-40.0) ug/mL Med Orders - Current: Current Medications Acetaminophen (Tylenol) 650 mg PO Q4H PRN PRN Reason: Fever Docusate Sodium (Colace) 100 mg PO BID [facility] Last Admin: 04/03/20 10:12 Dose: Not Given Documented by: Dextrose/Water (Dextrose 5% In Water) 1,000 mls @ 75 mls/hr IV ASDIRECTED [facility] Potassium Chloride 10 meq/ (Premix) 100 mls @ 100 mls/hr IV Q1H [facility] Stop: 04/03/20 14:29 Last Admin: 04/03/20 12:24 Dose: 100 mls/hr Documented by: Magnesium Sulfate 4 gm/ Premix 50 mls @ 12.5 mls/hr IV ONETIME ONE Stop: 04/03/20 18:29 Lactulose (Cephulac) 20 gm PO DAILY [facility] Last Admin: 04/03/20 10:12 Dose: Not Given Documented by: Metoprolol Tartrate (Lopressor) 12.5 mg PO BID [facility] Last Admin: 04/03/20 10:18 Dose: Not Given Documented by: Ondansetron HCl (Zofran) 4 mg IVPUSH Q4H PRN PRN Reason: Nausea Oxcarbazepine (Trileptal) 600 mg PO BID [facility] Last Admin: 04/03/20 09:10 Dose: 600 mg Documented by: Urea 1 Applic 0 each TOP BEDTIME [facility] Last Admin: 04/02/20 21:11 Dose: Not Given Documented by: Phenobarbital (Phenobarbital) 97.2 mg PO BEDTIME [facility] Last Admin: 04/02/20 21:10 Dose: 97.2 mg Documented by: Senna (Senna) 17.2 mg PO DAILY [facility] Last Admin: 04/03/20 10:12 Dose: Not Given Documented by: Discontinued Medications Dextrose/Sodium Chloride (Dextrose 5%-1/2 Ns) 1,000 mls @ 125 mls/hr IV ASDIRECTED [facility] Last Admin: 04/01/20 17:54 Dose: 125 mls/hr Documented by: Dextrose/Sodium Chloride (Dextrose 5%-1/2 Ns) 1,000 mls @ 125 mls/hr IV ASDIRECTED [facility] Dextrose/Water (Dextrose 5% In Water) 1,000 mls @ 150 mls/hr IV ASDIRECTED [facility] Last Admin: 04/02/20 07:41 Dose: 200 mls/hr Documented by: Potassium Chloride 10 meq/ (Premix) 100 mls @ 100 mls/hr IV Q1H [facility] Stop: 04/02/20 14:29 Last Admin: 04/02/20 14:30 Dose: 100 mls/hr Documented by: Dextrose/Water (Dextrose 5% In Water) 1,000 mls @ 200 mls/hr IV ASDIRECTED [facility] Last Admin: 04/02/20 14:57 Dose: 200 mls/hr Documented by: Dextrose/Water (Dextrose 5% In Water) 1,000 mls @ 100 mls/hr IV ASDIRECTED [facility] Last Admin: 04/03/20 08:49 Dose: 100 mls/hr Documented by: Metoprolol Tartrate (Lopressor) 12.5 mg PO ONETIME ONE Stop: 04/01/20 22:07 Last Admin: 04/02/20 00:30 Dose: Not Given Documented by: Valbenazine Tosylate ([Ingrezza] 40 Mg) 0 each PO DAILY [facility] Last Admin: 04/03/20 12:15 Dose: Not Given Documented by: - Exam General: Alert, Other (non verbal) HEENT: Pupils Equal, Pupils Reactive, EOMI, Mucous Membr. Moist/[place] Neck: Supple Lungs: Clear to Auscultation Cardiovascular: Regular Rate, Regular Rhythm GI/Abdominal Exam: Normal Bowel Sounds, Soft, Non-Tender, No Organomegaly, No Distention, No Abnormal Bruit, No Mass, Pelvis Stable Back Exam: Normal Inspection, Full Range of Motion Extremities: Normal Inspection, Normal Range of Motion, Non-Tender, No Pedal Edema, Normal Capillary Refill Skin: Warm, Dry, Intact Neurological: Other (non verbal) Psy/Mental Status: Alert Sepsis Event Note - Evaluation Sepsis Screening Result: No Definite Risk - Focused Exam Vital Signs: Vital Signs Temp Pulse Resp BP Pulse Ox 04/03/20 10:18 95 91/62 04/03/20 08:33 97.3 F 95 20 91/62 97 Date Exam was Performed: 04/03/20 Time Exam was Performed: 16:12 - Problem List & Annotations (1) Chronic kidney disease (CKD), stage III (moderate) SNOMED Code(s): 629509174 Code(s): N18.3 - CHRONIC KIDNEY DISEASE, STAGE 3 (MODERATE) Status: Acute Priority: Medium Current Visit: Yes Onset Date: ~04/01/20 (2) Hypercalcemia SNOMED Code(s): 03501966 Code(s): E83.52 - HYPERCALCEMIA Status: Acute Priority: Medium Current Visit: Yes Onset Date: ~04/01/20 (3) Hypermagnesemia SNOMED Code(s): 97353045 Code(s): E83.41 - HYPERMAGNESEMIA Status: Acute Priority: Medium Current Visit: Yes Onset Date: ~03/26/20 (4) Hypernatremia SNOMED Code(s): 406117218 Code(s): E87.0 - HYPEROSMOLALITY AND HYPERNATREMIA Status: Acute Priority: High Current Visit: Yes Onset Date: ~04/01/20 - Problem List Review Problem List Initiated/Reviewed/Updated: Yes - My Orders Last 24 Hours: assess 04/03/20 hypernatremia corrected/ metabolic acidosis still present, and iv to maintenance rate with recheck of labs in am . no improvement in cognitive function . discussed with caregivers not showing signs of increased alertness or thirst. if no response will do ct scan of head. reevaluate cortisol / prolactin level. suspect dehydration and volume contraction more than siadh as cause of hypernatremia but rule out other causes under way. 2/hypokalemia resolving. 3/ hyper mag recheck 4/hyperchloremia resolving . fluid balance appears euvolemic. no signs sepsis. 5/ 2.4 to 1.6 creatinine normalizing . 6/no signs liver failure //atn//cva//malignancy //other endocrine abnormality. pending results boh - Assessment Assessment:: 04/01/2020 75 year old female admitted to the floor from the ER after being sent to the ER from her primary care provider's office (Dr. Estrada). Apparently she has had a 30 pound weight loss over the last 3 months. She has not eaten much at all for the last week. She has an obvious declining level of health. Her CODE STATUS is DO NOT RESUSCITATE do not ventilate. Oral intake has been minimal in the past week Has scheduled bowel regimen, with last BM this morning No abnormal vital signs have been documented Start D5W Hough catheter to monitor urine output Encourage oral intake once more alert PRN Ativan for restlessness Monitor BMs DVT- patient non-ambulatory Patient will be admitted to medical floor on IVF repletion and monitorization. 04/02/2020 Na down from 161 to 158 K down from 3.3 to 3.1 Mg down from 2.6 to 2.1 GFR increased mildly from 20 to 22 Repeat lactic acid is normal Anion gap down from 29 to 24 BP trend 110-142/60-82 Tmax 99.5 HR trend 70-86x' SatO2 >95% on RA UO 2,300 Alertness level has not changed Patient will remain admitted to medical floor for IVF repletion and monitorization of electrolytes and mental status 04/03/2020 Oral intake has not changed Patient is non ambulatory Alertness level has not changed Discussed decreasing IV to 75 Discussed rechecking labs Discussed talking to the head person at [facility] about her being NPO and doing either a feeding tube or hospice hypernatremia corrected/ metabolic acidosis still present, and iv to maintenance rate with recheck of labs in am . no improvement in cognitive function . discussed with caregivers not showing signs of increased alertness or thirst. if no response will do ct scan of head. reevaluate cortisol / prolactin level. suspect dehydration and volume contraction more than siadh as cause of hypernatremia but rule out other causes under way. 2/hypokalemia resolving. 3/ hyper mag recheck 4/hyperchloremia resolving . fluid balance appears euvolemic. no signs sepsis. 5/ 2.4 to 1.6 creatinine normalizing . 6/no signs liver failure //atn//cva//malignancy //other endocrine abnormality. pending results boh - Plan Plan:: 04/03/2020 Oral intake has not changed Patient is non ambulatory Alertness level has not changed Discussed decreasing IV to 75 Discussed rechecking labs Discussed talking to the head person at [facility] about her being NPO and doing either a feeding tube or hospice
--- NOTE | 2020-04-03 20:20 | CT ---
Head CT Technique: Multiple axial sections through the brain were obtained. Intravenous contrast not utilized. Comparison: Prior head CT study of 09/20/12. Findings: Hyperostosis internal frontalis is noted which is considered a normal variant. Ventricles are moderately prominent. Sulci over the convexities are moderately prominent. Atrophy also noted within the cerebellum. No abnormal parenchymal densities are seen. No evidence of intracranial hemorrhage. No midline shift or mass-effect is seen. No acute calvarial abnormality is appreciated. Visualized mastoid sinuses and visualized paranasal sinuses show nothing acute. Impression: 1. Senescent change as noted above. 2. Nothing acute is appreciated on noncontrast head CT exam. Diagnostic code #2 This report was dictated in MDT
[2020-04-03] MEDS: Dextrose 5%-0.45% NaCl 1,000 ML IV SCH (20:50)
[2020-04-03] MEDS: PHENobarbital Sodium 65 MG/ML SDV IVPUSH SCH (20:53)
--- NOTE | 2020-04-03 20:56 | CT ---
CT chest Technique: Multiple axial sections through the chest were obtained. Intravenous contrast not utilized. Comparison: Prior chest CT of 02/22/17. Findings: Mild scarring is noted within the left base. Lungs otherwise are clear. No acute parenchymal change is seen. Artifact noted from pacer wires. Aorta shows no aneurysm. Mediastinum and hilar region show no adenopathy or mass. No axillary adenopathy is seen. Bone window settings were reviewed which shows nothing acute. Impression: 1. Scarring is felt to be present within the left lung base. 2. Nothing acute is definitely appreciated. Diagnostic code #2 This report was dictated in MDT CT abdomen and pelvis Technique: Multiple axial sections were obtained from above the dome of the diaphragm inferiorly through the pubic symphysis. Intravenous contrast and oral contrast not utilized. Comparison: Prior CT abdomen and pelvis exam of 10/21/16. Findings: Noncontrast appearance of the liver and spleen shows no discrete abnormality. Gallbladder contains no calcified gallstones. Adrenal glands show no nodule. Kidneys show no abnormal calcifications or hydronephrosis. Small hyperdense area is noted within the right kidney most likely representing a minimal hemorrhagic cyst. Aorta shows no aneurysm. Pancreas is within normal limits. No retroperitoneal adenopathy or mesenteric abnormalities are seen. No pelvic mass or adenopathy is seen. No free fluid or inflammatory change is seen. Appendix not visualized with certainty. Bone window settings were reviewed which shows nothing acute. Impression: 1. Nonacute findings as described above. Diagnostic code #2 This report was dictated in MDT
[2020-04-03] MEDS: UREA TOP SCH (21:00)
[2020-04-03] MEDS: Metoprolol Tartrate 5 MG/5 ML SDV IVPUSH SCH (22:10)
[2020-04-04] MEDS: Metoprolol Tartrate 5 MG/5 ML SDV IVPUSH SCH ×3 (04:27→20:04)
[2020-04-04] MEDS: Lactulose Soln 10 GM/15 ML 30 ML UD Cup PO SCH (09:32)
[2020-04-04] MEDS: Sennosides 8.6 MG Tab PO SCH (09:32)
[2020-04-04] MEDS: OXcarbazepine 300 MG Tab PO SCH ×2 (09:32→21:03)
[2020-04-04] MEDS: Potassium Chloride 10 MEQ in Premix Bag 1 BAG IV SCH ×4 (09:59→13:15)
[2020-04-04] MEDS: Dextrose 5%-0.45% NaCl 1,000 ML IV SCH ×2 (10:02→22:29)
[2020-04-04] MEDS: Docusate Sodium 100 MG Cap PO SCH ×2 (10:39→21:03)
--- NOTE | 2020-04-04 13:57 | PCM.PN ---
- General Info Date of Service: 04/04/20 Admission Dx/Problem (Free Text): Admission Diagnosis/Problem Admission Diagnosis/Problem Hypernatremia 04/01/2020 75 year old female admitted to the floor from the ER after being sent to the ER from her primary care provider's office (Dr. Grimes). Apparently she has had a 30 pound weight loss over the last 3 months. She has not eaten much at all for the last week. She has an obvious declining level of health. Her CODE STATUS is DO NOT RESUSCITATE do not ventilate. Oral intake has been minimal in the past week Has scheduled bowel regimen, with last BM this morning No abnormal vital signs have been documented Start D5W Rose catheter to monitor urine output Encourage oral intake once more alert PRN Ativan for restlessness Monitor BMs DVT- patient non-ambulatory Patient will be admitted to medical floor on IVF repletion and monitorization. 04/02/2020 Na down from 161 to 158 K down from 3.3 to 3.1 Mg down from 2.6 to 2.1 GFR increased mildly from 20 to 22 Repeat lactic acid is normal Anion gap down from 29 to 24 BP trend 110-142/60-82 Tmax 99.5 HR trend 70-86x' SatO2 >95% on RA UO 2,300 Alertness level has not changed Patient will remain admitted to medical floor for IVF repletion and monitorization of electrolytes and mental status 04/03/2020 Oral intake has not changed Patient is non ambulatory Alertness level has not changed Discussed decreasing IV to 75 Discussed rechecking labs Discussed talking to the head person at [facility] about her being NPO and doing either a feeding tube or hospice 04/04/[address] Grimes and Jenny she is rousable but no improvments noted in oral intake and cannot allow currently as stil npo. ct scans abd /pelvis and lungs and of brain reveal no evidence of cancer. cpr status no cpr reviewed. peg tube option seems aggressive and discussed no reasonable hope of returning to baseline as no reversable cause found. likely to recur. DR Grimes wonders about new med dc just one week ago and this is possbale side effect on level of conc. but hypernatremia not listed on side effect profile and off over one week before presenting. p.e. unchnged. lungs clear cor rrr neuro obtunded and non verbal but moves related to voices in non purposeful way . no posturing and no nystagmus and pupils reactive to light . assess. neuro obtundation ? related to any medication . 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 monitor boh Subjective Update: 04/03/2020 Oral intake has not changed Patient is non ambulatory Alertness level has not changed. p.e. vss lungs clear cor rrr s mur. abd benign.bs active . no tendernss organomegaly noted. neuro patient nonverbal. spong moves extremities not responding to name . occasional t.d movement rarely . lab na 140 k normal cl normal. hco3 still low. spot na low. lfts normal amylase and lipase normal . discussed with Dr Sydney mcintosh def. cause identified INGRESSA can cause ms alterations and consider mri but no focal findings on exam but exam very difficult. pituitary status check cortisol level in am . assess prolactin level . mri will require sedation and so ct scan preferred. Discussed decreasing IV to 75 Discussed rechecking labs Discussed talking to the head person at [facility] about her being NPO and doing either a feeding tube or hospice boh Functional Status: Reports: Pain Controlled - Review of Systems General: Reports: No Symptoms HEENT: Reports: No Symptoms Pulmonary: Reports: No Symptoms Cardiovascular: Reports: No Symptoms Gastrointestinal: Reports: No Symptoms Genitourinary: Reports: No Symptoms, Other (rose for comfort of patient ) Musculoskeletal: Reports: No Symptoms Skin: Reports: No Symptoms Neurological: Reports: No Symptoms Psychiatric: Reports: No Symptoms - Patient Data Vitals - Most Recent: Last Vital Signs Temp 36.4 C 04/04/20 08:31 Pulse 70 04/04/20 09:27 Resp 28 H 04/04/20 08:31 BP 117/89 04/04/20 09:27 Pulse Ox 99 04/04/20 08:31 Weight - Most Recent: 56.563 kg I&O - Last 24 Hours: Intake & Output 04/03/20 04/04/20 04/04/20 22:59 06:59 14:59 Intake Total 1873 900 5 Output Total 550 350 550 Balance 1323 550 -545 Lab Results Last 24 Hours: Laboratory Results - last 24 hr 04/03/20 04/04/20 04/04/20 Range/Units 20:15 04:15 04:15 WBC (3.98-10.04) K/mm3 RBC (3.98-5.22) M/mm3 Hgb (11.2-15.7) gm/dl Hct (34.1-44.9) % MCV (79.4-94.8) fl MCH (25.6-32.2) pg MCHC (32.2-35.5) g/dl RDW Std Deviation (36.4-46.3) fL Plt Count (182-369) K/mm3 MPV (9.4-12.3) fl Neut % (Auto) (34.0-71.1) % Lymph % (Auto) (19.3-51.7) % [place] % (Auto) (4.7-12.5) % Eos % (Auto) (0.7-5.8) Baso % (Auto) (0.1-1.2) % Neut # (Auto) (1.56-6.13) K/mm3 Lymph # (Auto) (1.18-3.74) K/mm3 [place] # (Auto) (0.24-0.36) K/mm3 Eos # (Auto) (0.04-0.36) K/mm3 Baso # (Auto) (0.01-0.08) K/mm3 Manual Slide Review Sodium 136 (136-145) mEq/L Potassium 4.2 (3.5-5.1) mEq/L Chloride 103 (98-107) mEq/L Carbon Dioxide 14 L (21-32) mEq/L Anion Gap 23.2 H (5-15) BUN 35 H (7-18) mg/dL Creatinine 1.4 H (0.55-1.02) mg/dL Est Cr Clr Drug Dosing 26.20 mL/min Estimated GFR (MDRD) 37 (>60) mL/min BUN/Creatinine Ratio 25.0 H (14-18) Glucose 105 (83-115) mg/dL Calcium 8.6 (8.5-10.1) mg/dL Magnesium 3.1 H (1.8-2.4) mg/dl Total Bilirubin (0.2-1.0) mg/dL AST (15-37) U/L ALT (14-59) U/L Alkaline Phosphatase (46-116) U/L Total Protein (6.4-8.2) g/dl Albumin (3.4-5.0) g/dl Globulin gm/dL Albumin/Globulin Ratio (1-2) Urine Color Yellow (Yellow) Urine Appearance Clear (Clear) Urine pH 6.0 (5.0-8.0) Ur Specific [place] 1.015 (1.005-1.030) Urine Protein Negative (Negative) Urine Glucose (UA) Negative (Negative) Urine Ketones Negative (Negative) Urine Occult Blood Trace-lysed H (Negative) Urine Nitrite Negative (Negative) Urine Bilirubin Negative (Negative) Urine Urobilinogen 0.2 (0.2-1.0) Ur Leukocyte Esterase 2+ H (Negative) Urine RBC 0-5 (0-5) /hpf Urine WBC 30-40 H (0-5) /hpf Ur Epithelial Cells 0-5 (0-5) /hpf Urine Bacteria Moderate H (FEW) /hpf Urine Mucus Not seen (FEW) /hpf Ur Random Sodium 8 L (40-220) mEq/L 04/04/20 04/04/20 Range/Units 05:15 05:15 WBC 7.28 (3.98-10.04) K/mm3 RBC 3.07 L (3.98-5.22) M/mm3 Hgb 10.6 L (11.2-15.7) gm/dl Hct 32.8 L (34.1-44.9) % MCV 106.8 H D (79.4-94.8) fl MCH 34.5 H (25.6-32.2) pg MCHC 32.3 (32.2-35.5) g/dl RDW Std Deviation 48.9 H (36.4-46.3) fL Plt Count 217 (182-369) K/mm3 MPV 11.5 (9.4-12.3) fl Neut % (Auto) 74.8 H (34.0-71.1) % Lymph % (Auto) 14.6 L (19.3-51.7) % [place] % (Auto) 7.6 (4.7-12.5) % Eos % (Auto) 2.6 (0.7-5.8) Baso % (Auto) 0.1 (0.1-1.2) % Neut # (Auto) 5.45 (1.56-6.13) K/mm3 Lymph # (Auto) 1.06 L (1.18-3.74) K/mm3 [place] # (Auto) 0.55 H (0.24-0.36) K/mm3 Eos # (Auto) 0.19 (0.04-0.36) K/mm3 Baso # (Auto) 0.01 (0.01-0.08) K/mm3 Manual Slide Review Abnormal smear Sodium 140 (136-145) mEq/L Potassium 3.3 L (3.5-5.1) mEq/L Chloride 108 H (98-107) mEq/L Carbon Dioxide 14 L (21-32) mEq/L Anion Gap 21.3 H (5-15) BUN 34 H (7-18) mg/dL Creatinine 1.2 H (0.55-1.02) mg/dL Est Cr Clr Drug Dosing 30.57 mL/min Estimated GFR (MDRD) 44 (>60) mL/min BUN/Creatinine Ratio 28.3 H (14-18) Glucose 99 (83-115) mg/dL Calcium 8.0 L (8.5-10.1) mg/dL Magnesium 2.4 (1.8-2.4) mg/dl Total Bilirubin 0.3 (0.2-1.0) mg/dL AST 24 (15-37) U/L ALT 36 (14-59) U/L Alkaline Phosphatase 75 (46-116) U/L Total Protein 5.2 L (6.4-8.2) g/dl Albumin 1.9 L (3.4-5.0) g/dl Globulin 3.3 gm/dL Albumin/Globulin Ratio 0.6 L (1-2) Urine Color (Yellow) Urine Appearance (Clear) Urine pH (5.0-8.0) Ur Specific [place] (1.005-1.030) Urine Protein (Negative) Urine Glucose (UA) (Negative) Urine Ketones (Negative) Urine Occult Blood (Negative) Urine Nitrite (Negative) Urine Bilirubin (Negative) Urine Urobilinogen (0.2-1.0) Ur Leukocyte Esterase (Negative) Urine RBC (0-5) /hpf Urine WBC (0-5) /hpf Ur Epithelial Cells (0-5) /hpf Urine Bacteria (FEW) /hpf Urine Mucus (FEW) /hpf Ur Random Sodium (40-220) mEq/L Med Orders - Current: Current Medications Acetaminophen (Tylenol) 650 mg PO Q4H PRN PRN Reason: Fever Docusate Sodium (Colace) 100 mg PO BID [facility] Last Admin: 04/04/20 10:39 Dose: Not Given Documented by: Dextrose/Sodium Chloride (Dextrose 5%-1/2 Ns) 1,000 mls @ 75 mls/hr IV ASDIRECTED [facility] Last Admin: 04/04/20 10:02 Dose: 75 mls/hr Documented by: Potassium Chloride 10 meq/ (Premix) 100 mls @ 100 mls/hr IV Q1H [facility] Stop: 04/04/20 13:59 Last Admin: 04/04/20 13:15 Dose: 100 mls/hr Documented by: Lactulose (Cephulac) 20 gm PO DAILY [facility] Last Admin: 04/04/20 09:32 Dose: 20 gm Documented by: Metoprolol Tartrate (Lopressor) 2.5 mg IVPUSH Q12H [facility] Ondansetron HCl (Zofran) 4 mg IVPUSH Q4H PRN PRN Reason: Nausea Oxcarbazepine (Trileptal) 600 mg PO BID [facility] Last Admin: 04/04/20 09:32 Dose: 600 mg Documented by: Urea 1 Applic 0 each TOP BEDTIME [facility] Last Admin: 04/03/20 21:00 Dose: Not Given Documented by: Phenobarbital (Phenobarbital Sodium) 65 mg IVPUSH BEDTIME [facility] Last Admin: 04/03/20 20:53 Dose: 65 mg Documented by: Senna (Senna) 17.2 mg PO DAILY [facility] Last Admin: 04/04/20 09:32 Dose: 17.2 mg Documented by: Discontinued Medications Dextrose/Sodium Chloride (Dextrose 5%-1/2 Ns) 1,000 mls @ 125 mls/hr IV ASDIRECTED [facility] Last Admin: 04/01/20 17:54 Dose: 125 mls/hr Documented by: Dextrose/Sodium Chloride (Dextrose 5%-1/2 Ns) 1,000 mls @ 125 mls/hr IV ASDIRECTED [facility] Dextrose/Water (Dextrose 5% In Water) 1,000 mls @ 150 mls/hr IV ASDIRECTED [facility] Last Admin: 04/02/20 07:41 Dose: 200 mls/hr Documented by: Potassium Chloride 10 meq/ (Premix) 100 mls @ 100 mls/hr IV Q1H [facility] Stop: 04/02/20 14:29 Last Admin: 04/02/20 14:30 Dose: 100 mls/hr Documented by: Dextrose/Water (Dextrose 5% In Water) 1,000 mls @ 200 mls/hr IV ASDIRECTED [facility] Last Admin: 04/02/20 14:57 Dose: 200 mls/hr Documented by: Dextrose/Water (Dextrose 5% In Water) 1,000 mls @ 100 mls/hr IV ASDIRECTED [facility] Last Admin: 04/03/20 08:49 Dose: 100 mls/hr Documented by: Dextrose/Water (Dextrose 5% In Water) 1,000 mls @ 75 mls/hr IV ASDIRECTED [facility] Potassium Chloride 10 meq/ (Premix) 100 mls @ 100 mls/hr IV Q1H [facility] Stop: 04/03/20 14:29 Last Admin: 04/03/20 14:48 Dose: 100 mls/hr Documented by: Magnesium Sulfate 4 gm/ Premix 50 mls @ 12.5 mls/hr IV ONETIME ONE Stop: 04/03/20 18:29 Last Admin: 04/03/20 14:21 Dose: 12.5 mls/hr Documented by: Metoprolol Tartrate (Lopressor) 12.5 mg PO ONETIME ONE Stop: 04/01/20 22:07 Last Admin: 04/02/20 00:30 Dose: Not Given Documented by: Metoprolol Tartrate (Lopressor) 12.5 mg PO BID [facility] Last Admin: 04/03/20 20:59 Dose: Not Given Documented by: Metoprolol Tartrate (Lopressor) 2.5 mg IVPUSH Q6H [facility] Last Admin: 04/04/20 09:27 Dose: 2.5 mg Documented by: Valbenazine Tosylate ([Ingrezza] 40 Mg) 0 each PO DAILY [facility] Last Admin: 04/03/20 12:15 Dose: Not Given Documented by: Phenobarbital (Phenobarbital) 97.2 mg PO BEDTIME [facility] Last Admin: 04/02/20 21:10 Dose: 97.2 mg Documented by: - Exam General: Alert, Oriented HEENT: Pupils Equal, Pupils Reactive, EOMI, Mucous Membr. Moist/[place] Neck: Supple Lungs: Clear to Auscultation, Normal Respiratory Effort Cardiovascular: Regular Rate, Regular Rhythm GI/Abdominal Exam: Normal Bowel Sounds, Soft, Non-Tender, No Organomegaly, No Distention, No Abnormal Bruit, No Mass, Pelvis Stable (Female) Exam: Normal External Exam, Normal Speculum Exam, Normal Bimanual Exam Back Exam: Normal Inspection, Full Range of Motion Extremities: Normal Inspection, Normal Range of Motion, Non-Tender, No Pedal Edema, Normal Capillary Refill Skin: Warm, Dry, Intact Wound/Incisions: Healing Well Neurological: No New Focal Deficit Psy/Mental Status: Alert, Normal Affect, Normal Mood Sepsis Event Note - Evaluation Sepsis Screening Result: No Definite Risk - Focused Exam Vital Signs: Vital Signs Temp Pulse Resp BP BP Pulse Ox 04/04/20 09:27 70 117/89 04/04/20 08:31 36.4 C 70 28 H 117/89 99 04/04/20 04:27 86 98/58 L 04/04/20 04:22 98/58 L 04/04/20 04:12 36.6 C 82 18 95/83 98 Date Exam was Performed: 04/04/20 Time Exam was Performed: 13:50 - Problem List & Annotations (1) Chronic kidney disease (CKD), stage III (moderate) SNOMED Code(s): 146048128 Code(s): N18.3 - CHRONIC KIDNEY DISEASE, STAGE 3 (MODERATE) Status: Acute Priority: Medium Current Visit: Yes Onset Date: ~04/01/20 (2) Hypercalcemia SNOMED Code(s): 21814185 Code(s): E83.52 - HYPERCALCEMIA Status: Acute Priority: Medium Current Visit: Yes Onset Date: ~04/01/20 (3) Hypermagnesemia SNOMED Code(s): 42013215 Code(s): E83.41 - HYPERMAGNESEMIA Status: Acute Priority: Medium Current Visit: Yes Onset Date: ~03/26/20 (4) Hypernatremia SNOMED Code(s): 199118964 Code(s): E87.0 - HYPEROSMOLALITY AND HYPERNATREMIA Status: Acute Priority: High Current Visit: Yes Onset Date: ~04/01/20 (5) Bipolar disorder SNOMED Code(s): 54838122 Code(s): F31.9 - BIPOLAR DISORDER, UNSPECIFIED Status: Acute Priority: Medium Current Visit: Yes Qualifiers: Active/Remission status: in remission of unspecified degree Qualified Code(s): F31.70 - Bipolar disorder, currently in remission, most recent episode unspecified (6) High anion gap metabolic acidosis SNOMED Code(s): 69906342 Code(s): E87.2 - ACIDOSIS Status: Acute Priority: Medium Current Visit: Yes Onset Date: ~04/02/20 - Problem List Review Problem List Initiated/Reviewed/Updated: Yes - My Orders Last 24 Hours: My Active Orders 04/03/20 20:00 Dextrose 5%-0.45% NaCl [Dextrose 5%-1/2 NS] 1,000 ml IV ASDIRECTED 04/03/20 21:00 PHENobarbitaL sodium 65 mg IVPUSH BEDTIME 04/04/20 04:15 CULTURE URINE [RM] Routine 04/04/20 05:15 CORTISOL [REF] Routine PROLACTIN [REF] Routine 04/04/20 10:00 Potassium Chloride [KCl 10 MEQ in Water 100 ML] 10 meq Premix Bag 1 bag IV Q1H 04/04/20 21:00 Metoprolol Tartrate [Lopressor] 2.5 mg IVPUSH Q12H 04/05/20 05:11 BASIC METABOLIC PANEL,BMP [CHEM] Routine PHENOBARBITAL [REF] Routine - Assessment Assessment:: 04/01/2020 75 year old female admitted to the floor from the ER after being sent to the ER from her primary care provider's office (Dr. Grimes). Apparently she has had a 30 pound weight loss over the last 3 months. She has not eaten much at all for the last week. She has an obvious declining level of health. Her CODE STATUS is DO NOT RESUSCITATE do not ventilate. Oral intake has been minimal in the past week Has scheduled bowel regimen, with last BM this morning No abnormal vital signs have been documented Start D5W Rose catheter to monitor urine output Encourage oral intake once more alert PRN Ativan for restlessness Monitor BMs DVT- patient non-ambulatory Patient will be admitted to medical floor on IVF repletion and monitorization. 04/02/2020 Na down from 161 to 158 K down from 3.3 to 3.1 Mg down from 2.6 to 2.1 GFR increased mildly from 20 to 22 Repeat lactic acid is normal Anion gap down from 29 to 24 BP trend 110-142/60-82 Tmax 99.5 HR trend 70-86x' SatO2 >95% on RA UO 2,300 Alertness level has not changed Patient will remain admitted to medical floor for IVF repletion and monitorization of electrolytes and mental status 04/03/2020 Oral intake has not changed Patient is non ambulatory Alertness level has not changed Discussed decreasing IV to 75 Discussed rechecking labs Discussed talking to the head person at [facility] about her being NPO and doing either a feeding tube or hospice hypernatremia corrected/ metabolic acidosis still present, and iv to maintenance rate with recheck of labs in am . no improvement in cognitive function . discussed with caregivers not showing signs of increased alertness or thirst. if no response will do ct scan of head. reevaluate cortisol / prolactin level. suspect dehydration and volume contraction more than siadh as cause of hypernatremia but rule out other causes under way. 2/hypokalemia resolving. 3/ hyper mag recheck 4/hyperchloremia resolving . fluid balance appears euvolemic. no signs sepsis. 5/ 2.4 to 1.6 creatinine normalizing . 6/no signs liver failure //atn//cva//malignancy //other endocrine abnormality. pending results boh - Plan Plan:: 04/03/2020 Oral intake has not changed Patient is non ambulatory Alertness level has not changed Discussed decreasing IV to 75 Discussed rechecking labs Discussed talking to the head person at [facility] about her being NPO and doing either a feeding tube or hospice. 04/04/[address] Grimes and Jenny she is rousable but no improvments noted in oral intake and cannot allow currently as stil npo. ct scans abd /pelvis and lungs and of brain reveal no evidence of cancer. cpr status no cpr reviewed. peg tube option seems aggressive and discussed no reasonable hope of returning to baseline as no reversable cause found. likely to recur. DR Grimes wonders about new med dc just one week ago and this is possbale side effect on level of conc. but hypernatremia not listed on side effect profile and off over one week before presenting. p.e. unchnged. lungs clear cor rrr neuro obtunded and non verbal but moves related to voices in non purposeful way . no posturing and no nystagmus and pupils reactive to light . assess. neuro obtundation ? related to any medication . 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 monitor boh
[2020-04-04] MEDS: CEFAZOLIN IV SCH (18:15)
[2020-04-04] MEDS: PHENobarbital Sodium 65 MG/ML SDV IVPUSH SCH (20:02)
[2020-04-04] MEDS: UREA TOP SCH (21:03)
[2020-04-04] MEDS: Acetaminophen 650 MG Supp RECTAL PRN (22:29)
[2020-04-05] MEDS: CEFAZOLIN IV SCH (05:20)
[2020-04-05] MEDS: OXcarbazepine 300 MG Tab PO SCH (08:56)
[2020-04-05] MEDS: Sennosides 8.6 MG Tab PO SCH (08:56)
[2020-04-05] MEDS: Metoprolol Tartrate 5 MG/5 ML SDV IVPUSH SCH (08:56)
[2020-04-05] MEDS: Lactulose Soln 10 GM/15 ML 30 ML UD Cup PO SCH (08:56)
[2020-04-05] MEDS: Docusate Sodium 100 MG Cap PO SCH (08:56)
[2020-04-05] MEDS: Dextrose 5%-0.45% NaCl 1,000 ML IV SCH (13:33)
--- NOTE | 2020-04-05 14:02 | PCM.SN.2 ---
- Free Text/Narrative Note: p.m note. noted to have increased weight form i.v hydration , and i.v held last 12 hours but very little waking up . virtually no p.o intake . noted by nurses to have smelling urine with catherter in and prel ua shows wbcs and leukocytes. gram neg organism growing . so rose removed . poss uti in debilitated patient and restart i.v and start ancef for poss uti boh
--- NOTE | 2020-04-05 14:08 | PCM.PN ---
- General Info Date of Service: 04/05/20 Admission Dx/Problem (Free Text): Admission Diagnosis/Problem Admission Diagnosis/Problem Hypernatremia 04/01/2020 75 year old female admitted to the floor from the ER after being sent to the ER from her primary care provider's office (Dr. Estrada). Apparently she has had a 30 pound weight loss over the last 3 months. She has not eaten much at all for the last week. She has an obvious declining level of health. Her CODE STATUS is DO NOT RESUSCITATE do not ventilate. Oral intake has been minimal in the past week Has scheduled bowel regimen, with last BM this morning No abnormal vital signs have been documented Start D5W Hough catheter to monitor urine output Encourage oral intake once more alert PRN Ativan for restlessness Monitor BMs DVT- patient non-ambulatory Patient will be admitted to medical floor on IVF repletion and monitorization. 04/02/2020 Na down from 161 to 158 K down from 3.3 to 3.1 Mg down from 2.6 to 2.1 GFR increased mildly from 20 to 22 Repeat lactic acid is normal Anion gap down from 29 to 24 BP trend 110-142/60-82 Tmax 99.5 HR trend 70-86x' SatO2 >95% on RA UO 2,300 Alertness level has not changed Patient will remain admitted to medical floor for IVF repletion and monitorization of electrolytes and mental status 04/03/2020 Oral intake has not changed Patient is non ambulatory Alertness level has not changed Discussed decreasing IV to 75 Discussed rechecking labs Discussed talking to the head person at [facility] about her being NPO and doing either a feeding tube or hospice 04/04/[address] Estrada and Jenny she is arousable but no improvements noted in oral intake and cannot allow currently as stil npo. ct scans abd /pelvis and lungs and of brain reveal no evidence of cancer. cpr status no cpr reviewed. peg tube option seems aggressive and discussed no reasonable hope of returning to baseline as no reversable cause found. likely to recur. DR Estrada wonders about new med dc just one week ago and this is possible side effect on level of conc. but hypernatremia not listed on side effect profile and off over one week before presenting. p.e. unchnged. lungs clear cor rrr neuro obtunded and non verbal but moves related to voices in non purposeful way . no posturing and no nystagmus and pupils reactive to light . assess. neuro obtundation ? related to any medication . 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 monitor [facility] 04/05/20 afebrile vss iv at 75 hr/ d5 lr p.e. some increased arousability and took one oral med this am. comfortable / sats stable . no seizure like activity . tardive movements minimal. Subjective Update: 04/04/[address] Estrada and Jenny she is arousable but no improvements noted in oral intake and cannot allow currently as stil npo. ct scans abd /pelvis and lungs and of brain reveal no evidence of cancer. cpr status no cpr reviewed. peg tube option seems aggressive and discussed no reasonable hope of returning to baseline as no reversable cause found. likely to recur. DR Estrada wonders about new med dc just one week ago and this is possible side effect on level of conc. but hypernatremia not listed on side effect profile and off over one week before presenting. p.e. unchnged. lungs clear cor rrr neuro obtunded and non verbal but moves related to voices in non purposeful way . no posturing and no nystagmus and pupils reactive to light . assess. neuro obtundation ? related to any medication . 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 monitor [facility] 04/05/20 afebrile vss iv at 75 hr/ d5 lr p.e. some increased arousability and took one oral med this am. comfortable / sats stable . no seizure like activity . tardive movements minimal. - Patient Data Vitals - Most Recent: Last Vital Signs Temp 36.1 C 04/05/20 07:22 Pulse 91 04/05/20 08:56 Resp 14 04/05/20 07:22 BP 124/70 04/05/20 08:56 Pulse Ox 98 04/05/20 07:22 Weight - Most Recent: 56.563 kg I&O - Last 24 Hours: Intake & Output 04/04/20 04/05/20 04/05/20 22:59 06:59 14:59 Intake Total 1902 900 Output Total 100 Balance 1802 900 Lab Results Last 24 Hours: Laboratory Results - last 24 hr 04/02/20 04/04/20 04/04/20 Range/Units 08:20 05:15 05:15 Sodium (136-145) mEq/L Potassium (3.5-5.1) mEq/L Chloride (98-107) mEq/L Carbon Dioxide (21-32) mEq/L Anion Gap (5-15) BUN (7-18) mg/dL Creatinine (0.55-1.02) mg/dL Est Cr Clr Drug Dosing mL/min Estimated GFR (MDRD) (>60) mL/min BUN/Creatinine Ratio (14-18) Glucose (83-115) mg/dL Calcium (8.5-10.1) mg/dL Ionized Calcium 5.7 H (4.5-5.6) mg/dL Prolactin 10.8 ng/mL Cortisol 17.6 ug/dL 04/05/20 Range/Units 05:30 Sodium 143 (136-145) mEq/L Potassium 4.2 (3.5-5.1) mEq/L Chloride 111 H (98-107) mEq/L Carbon Dioxide 15 L (21-32) mEq/L Anion Gap 21.2 H (5-15) BUN 26 H (7-18) mg/dL Creatinine 1.1 H (0.55-1.02) mg/dL Est Cr Clr Drug Dosing 33.34 mL/min Estimated GFR (MDRD) 48 (>60) mL/min BUN/Creatinine Ratio 23.6 H (14-18) Glucose 90 (83-115) mg/dL Calcium 7.4 L (8.5-10.1) mg/dL Ionized Calcium (4.5-5.6) mg/dL Prolactin ng/mL Cortisol ug/dL Dustin Results Last 24 Hours: Microbiology 04/01/20 17:40 Urine Culture - Final Urine, Clean Catch 04/04/20 04:15 Urine Culture - Preliminary Urine, Hough Cath (Indwelling) Gram Negative Rods Med Orders - Current: Current Medications Acetaminophen (Tylenol) 650 mg RECTAL Q4H PRN PRN Reason: Pain Last Admin: 04/04/20 22:29 Dose: 650 mg Documented by: Docusate Sodium (Colace) 100 mg PO BID BARBARA Last Admin: 04/05/20 08:56 Dose: Not Given Documented by: Dextrose/Sodium Chloride (Dextrose 5%-1/2 Ns) 1,000 mls @ 75 mls/hr IV ASDIRECTED PENDING SALE TO [facility] Last Admin: 04/05/20 13:33 Dose: 75 mls/hr Documented by: Cefazolin Sodium 0.5 gm/ (Sodium Chloride) 50 mls @ 100 mls/hr IV Q12H PENDING SALE TO [facility] Lactulose (Cephulac) 20 gm PO DAILY PENDING SALE TO [facility] Last Admin: 04/05/20 08:56 Dose: 20 gm Documented by: Metoprolol Tartrate (Lopressor) 2.5 mg IVPUSH Q12H PENDING SALE TO [facility] Last Admin: 04/05/20 08:56 Dose: 2.5 mg Documented by: Ondansetron HCl (Zofran) 4 mg IVPUSH Q4H PRN PRN Reason: Nausea Oxcarbazepine (Trileptal) 600 mg PO BID PENDING SALE TO [facility] Last Admin: 04/05/20 08:56 Dose: 600 mg Documented by: Urea 1 Applic 0 each TOP BEDTIME PENDING SALE TO [facility] Last Admin: 04/04/20 21:03 Dose: Not Given Documented by: Phenobarbital (Phenobarbital Sodium) 65 mg IVPUSH BEDTIME PENDING SALE TO [facility] Last Admin: 04/04/20 20:02 Dose: 65 mg Documented by: Senna (Senna) 17.2 mg PO DAILY PENDING SALE TO [facility] Last Admin: 04/05/20 08:56 Dose: 17.2 mg Documented by: Discontinued Medications Acetaminophen (Tylenol) 650 mg PO Q4H PRN PRN Reason: Fever Dextrose/Sodium Chloride (Dextrose 5%-1/2 Ns) 1,000 mls @ 125 mls/hr IV ASDIRECTED PENDING SALE TO [facility] Last Admin: 04/01/20 17:54 Dose: 125 mls/hr Documented by: Dextrose/Sodium Chloride (Dextrose 5%-1/2 Ns) 1,000 mls @ 125 mls/hr IV ASDIRECTED PENDING SALE TO [facility] Dextrose/Water (Dextrose 5% In Water) 1,000 mls @ 150 mls/hr IV ASDIRECTED PENDING SALE TO [facility] Last Admin: 04/02/20 07:41 Dose: 200 mls/hr Documented by: Potassium Chloride 10 meq/ (Premix) 100 mls @ 100 mls/hr IV Q1H PENDING SALE TO [facility] Stop: 04/02/20 14:29 Last Admin: 04/02/20 14:30 Dose: 100 mls/hr Documented by: Dextrose/Water (Dextrose 5% In Water) 1,000 mls @ 200 mls/hr IV ASDIRECTED PENDING SALE TO [facility] Last Admin: 04/02/20 14:57 Dose: 200 mls/hr Documented by: Dextrose/Water (Dextrose 5% In Water) 1,000 mls @ 100 mls/hr IV ASDIRECTED PENDING SALE TO [facility] Last Admin: 04/03/20 08:49 Dose: 100 mls/hr Documented by: Dextrose/Water (Dextrose 5% In Water) 1,000 mls @ 75 mls/hr IV ASDIRECTED PENDING SALE TO [facility] Potassium Chloride 10 meq/ (Premix) 100 mls @ 100 mls/hr IV Q1H PENDING SALE TO [facility] Stop: 04/03/20 14:29 Last Admin: 04/03/20 14:48 Dose: 100 mls/hr Documented by: Magnesium Sulfate 4 gm/ Premix 50 mls @ 12.5 mls/hr IV ONETIME ONE Stop: 04/03/20 18:29 Last Admin: 04/03/20 14:21 Dose: 12.5 mls/hr Documented by: Potassium Chloride 10 meq/ (Premix) 100 mls @ 100 mls/hr IV Q1H PENDING SALE TO [facility] Stop: 04/04/20 13:59 Last Admin: 04/04/20 13:15 Dose: 100 mls/hr Documented by: Cefazolin Sodium/Dextrose 0.5 (gm/ Premix) 25 mls @ 50 mls/hr IV Q12H PENDING SALE TO [facility] Last Admin: 04/05/20 05:20 Dose: 50 mls/hr Documented by: Metoprolol Tartrate (Lopressor) 12.5 mg PO ONETIME ONE Stop: 04/01/20 22:07 Last Admin: 04/02/20 00:30 Dose: Not Given Documented by: Metoprolol Tartrate (Lopressor) 12.5 mg PO BID PENDING SALE TO [facility] Last Admin: 04/03/20 20:59 Dose: Not Given Documented by: Metoprolol Tartrate (Lopressor) 2.5 mg IVPUSH Q6H PENDING SALE TO [facility] Last Admin: 04/04/20 09:27 Dose: 2.5 mg Documented by: Valbenazine Tosylate ([Ingrezza] 40 Mg) 0 each PO DAILY PENDING SALE TO [facility] Last Admin: 04/03/20 12:15 Dose: Not Given Documented by: Phenobarbital (Phenobarbital) 97.2 mg PO BEDTIME PENDING SALE TO [facility] Last Admin: 04/02/20 21:10 Dose: 97.2 mg Documented by: - Exam General: Alert, Oriented HEENT: Pupils Equal, Pupils Reactive, EOMI, Mucous Membr. Moist/[place] Neck: Supple Lungs: Clear to Auscultation, Normal Respiratory Effort Cardiovascular: Regular Rate, Regular Rhythm GI/Abdominal Exam: Normal Bowel Sounds, Soft, Non-Tender, No Organomegaly, No Distention, No Abnormal Bruit, No Mass, Pelvis Stable (Female) Exam: Normal External Exam, Normal Speculum Exam, Normal Bimanual Exam Back Exam: Normal Inspection, Full Range of Motion Extremities: Normal Inspection, Normal Range of Motion, Non-Tender, No Pedal Edema, Normal Capillary Refill Skin: Warm, Dry, Intact Wound/Incisions: Healing Well Neurological: No New Focal Deficit Psy/Mental Status: Alert, Normal Affect, Normal Mood Sepsis Event Note - Evaluation Sepsis Screening Result: No Definite Risk - Focused Exam Vital Signs: Vital Signs Temp Temp Pulse Pulse Resp BP BP 04/05/20 08:56 91 124/70 04/05/20 07:22 36.1 C 91 14 124/70 04/05/20 02:28 35.9 C L 70 18 106/60 04/05/20 02:25 35.9 C L 89 18 106/60 Pulse Ox 04/05/20 08:56 04/05/20 07:22 98 04/05/20 02:28 100 04/05/20 02:25 98 Date Exam was Performed: 04/05/20 Time Exam was Performed: 14:02 - Problem List & Annotations (1) Chronic kidney disease (CKD), stage III (moderate) SNOMED Code(s): 776505323 Code(s): N18.3 - CHRONIC KIDNEY DISEASE, STAGE 3 (MODERATE) Status: Acute Priority: Medium Current Visit: Yes Onset Date: ~04/01/20 Annotation/Comment:: creat stable (2) Hypercalcemia SNOMED Code(s): 14356964 Code(s): E83.52 - HYPERCALCEMIA Status: Acute Priority: Medium Current Visit: Yes Onset Date: ~04/01/20 Annotation/Comment:: low protien and normal ca (3) Hypermagnesemia SNOMED Code(s): 65944186 Code(s): E83.41 - HYPERMAGNESEMIA Status: Acute Priority: Low Current Visit: Yes Onset Date: ~03/26/20 (4) Hypernatremia SNOMED Code(s): 737883391 Code(s): E87.0 - HYPEROSMOLALITY AND HYPERNATREMIA Status: Acute Priority: High Current Visit: Yes Onset Date: ~04/01/20 Annotation/Comment:: na 140 (5) Bipolar disorder SNOMED Code(s): 24041072 Code(s): F31.9 - BIPOLAR DISORDER, UNSPECIFIED Status: Acute Priority: Low Current Visit: Yes Onset Date: ~04/02/20 Qualifiers: Active/Remission status: in remission of unspecified degree Qualified Code(s): F31.70 - Bipolar disorder, currently in remission, most recent episode unspecified (6) High anion gap metabolic acidosis SNOMED Code(s): 94844995 Code(s): E87.2 - ACIDOSIS Status: Acute Priority: Low Current Visit: Yes Onset Date: ~04/02/20 (7) Dehydration SNOMED Code(s): 78488203 Code(s): E86.0 - DEHYDRATION Status: Acute Priority: Low Current Visit: Yes Onset Date: ~04/02/20 Annotation/Comment:: dehdration resolved sec to i.v . she is unable to take in fluids reliably despite correction of hypernatremia x 3 days - Problem List Review Problem List Initiated/Reviewed/Updated: Yes - My Orders Last 24 Hours: My Active Orders 04/04/20 20:52 Acetaminophen [Tylenol] 650 mg RECTAL Q4H PRN 04/04/20 21:00 Metoprolol Tartrate [Lopressor] 2.5 mg IVPUSH Q12H 04/05/20 05:30 PHENOBARBITAL [REF] Routine 04/05/20 18:00 ceFAZolin [Ancef] 0.5 gm Sodium Chloride 0.9% [Normal Saline] 50 ml IV Q12H - Assessment Assessment:: 04/01/2020 75 year old female admitted to the floor from the ER after being sent to the ER from her primary care provider's office (Dr. Estrada). Apparently she has had a 30 pound weight loss over the last 3 months. She has not eaten much at all for the last week. She has an obvious declining level of health. Her CODE STATUS is DO NOT RESUSCITATE do not ventilate. Oral intake has been minimal in the past week Has scheduled bowel regimen, with last BM this morning No abnormal vital signs have been documented Start D5W Hough catheter to monitor urine output Encourage oral intake once more alert PRN Ativan for restlessness Monitor BMs DVT- patient non-ambulatory Patient will be admitted to medical floor on IVF repletion and monitorization. 04/02/2020 Na down from 161 to 158 K down from 3.3 to 3.1 Mg down from 2.6 to 2.1 GFR increased mildly from 20 to 22 Repeat lactic acid is normal Anion gap down from 29 to 24 BP trend 110-142/60-82 Tmax 99.5 HR trend 70-86x' SatO2 >95% on RA UO 2,300 Alertness level has not changed Patient will remain admitted to medical floor for IVF repletion and monitorization of electrolytes and mental status 04/03/2020 Oral intake has not changed Patient is non ambulatory Alertness level has not changed Discussed decreasing IV to 75 Discussed rechecking labs Discussed talking to the head person at [facility] about her being NPO and doing either a feeding tube or hospice hypernatremia corrected/ metabolic acidosis still present, and iv to maintenance rate with recheck of labs in am . no improvement in cognitive function . discussed with caregivers not showing signs of increased alertness or thirst. if no response will do ct scan of head. reevaluate cortisol / prolactin level. suspect dehydration and volume contraction more than siadh as cause of hypernatremia but rule out other causes under way. 2/hypokalemia resolving. 3/ hyper mag recheck 4/hyperchloremia resolving . fluid balance appears euvolemic. no signs sepsis. 5/ 2.4 to 1.6 creatinine normalizing . 6/no signs liver failure //atn//cva//malignancy //other endocrine abnormality. pending results boh - Plan Plan:: 04/03/2020 Oral intake has not changed Patient is non ambulatory Alertness level has not changed Discussed decreasing IV to 75 Discussed rechecking labs Discussed talking to the head person at [facility] about her being NPO and doing either a feeding tube or hospice. 04/04/[address] No she is rousable but no improvments noted in oral intake and cannot allow currently as stil npo. ct scans abd /pelvis and lungs and of brain reveal no evidence of cancer. cpr status no cpr reviewed. peg tube option seems aggressive and discussed no reasonable hope of returning to baseline as no reversable cause found. likely to recur. DR Estrada wonders about new med dc just one week ago and this is possbale side effect on level of conc. but hypernatremia not listed on side effect profile and off over one week before presenting. p.e. unchnged. lungs clear cor rrr neuro obtunded and non verbal but moves related to voices in non purposeful way . no posturing and no nystagmus and pupils reactive to light . assess. neuro obtundation ? related to any medication . 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 monitor [facility] 04/04/20 04/05/20 afebrile vss iv at 75 hr/ d5 lr p.e. some increased arousability and took one oral med this am. comfortable / sats stable . no seizure like activity . tardive movements minimal.
[2020-04-05] MEDS ORDERED: Sodium Chloride 0.9% 50 ML ONE (20:13)
[2020-04-05] MEDS: Acetaminophen 650 MG Supp RECTAL PRN (20:38)
[2020-04-06] MEDS ORDERED: Lidocaine 1% 2 ML ONE (01:02)
--- NOTE | 2020-04-06 01:09 | PCM.SN.2 ---
- Free Text/Narrative Note: Anesthesia Note: Start: 0035 Stop: 0055 Anesthesia requested for IV start. Right saphenous vein with 22 gauge times one attempt. Good blood return, and flushed easily with 20ml's of normal saline. Site secured with opsite, cling, foot board and netting. Thanks! Celia GARDUNO
[2020-04-06] MEDS: OXcarbazepine 300 MG Tab PO SCH ×3 (01:21→22:26)
[2020-04-06] MEDS: Docusate Sodium 100 MG Cap PO SCH ×4 (01:21→22:26)
[2020-04-06] MEDS: PHENobarbital Sodium 65 MG/ML SDV IVPUSH SCH ×2 (01:22→21:14)
[2020-04-06] MEDS: Metoprolol Tartrate 5 MG/5 ML SDV IVPUSH SCH ×3 (01:22→21:14)
[2020-04-06] MEDS: UREA TOP SCH ×2 (01:26→22:26)
[2020-04-06] MEDS: Lactulose Soln 10 GM/15 ML 30 ML UD Cup PO SCH (09:09)
[2020-04-06] MEDS: Sennosides 8.6 MG Tab PO SCH (09:13)
[2020-04-06] MEDS: Dextrose 5%-0.45% NaCl 1,000 ML IV SCH ×2 (09:23→22:18)
--- NOTE | 2020-04-06 15:40 | PCM.PN ---
- General Info Date of Service: 04/06/20 Admission Dx/Problem (Free Text): Admission Diagnosis/Problem Admission Diagnosis/Problem Hypernatremia 04/01/2020 75 year old female admitted to the floor from the ER after being sent to the ER from her primary care provider's office (Dr. Estrada). Apparently she has had a 30 pound weight loss over the last 3 months. She has not eaten much at all for the last week. She has an obvious declining level of health. Her CODE STATUS is DO NOT RESUSCITATE do not ventilate. Oral intake has been minimal in the past week Has scheduled bowel regimen, with last BM this morning No abnormal vital signs have been documented Start D5W Hough catheter to monitor urine output Encourage oral intake once more alert PRN Ativan for restlessness Monitor BMs DVT- patient non-ambulatory Patient will be admitted to medical floor on IVF repletion and monitorization. 04/02/2020 Na down from 161 to 158 K down from 3.3 to 3.1 Mg down from 2.6 to 2.1 GFR increased mildly from 20 to 22 Repeat lactic acid is normal Anion gap down from 29 to 24 BP trend 110-142/60-82 Tmax 99.5 HR trend 70-86x' SatO2 >95% on RA UO 2,300 Alertness level has not changed Patient will remain admitted to medical floor for IVF repletion and monitorization of electrolytes and mental status 04/03/2020 Oral intake has not changed Patient is non ambulatory Alertness level has not changed Discussed decreasing IV to 75 Discussed rechecking labs Discussed talking to the head person at [facility] about her being NPO and doing either a feeding tube or hospice 04/04/[address] Estrada and Jenny she is arousable but no improvements noted in oral intake and cannot allow currently as stil npo. ct scans abd /pelvis and lungs and of brain reveal no evidence of cancer. cpr status no cpr reviewed. peg tube option seems aggressive and discussed no reasonable hope of returning to baseline as no reversable cause found. likely to recur. DR Estrada wonders about new med dc just one week ago and this is possible side effect on level of conc. but hypernatremia not listed on side effect profile and off over one week before presenting. p.e. unchnged. lungs clear cor rrr neuro obtunded and non verbal but moves related to voices in non purposeful way . no posturing and no nystagmus and pupils reactive to light . assess. neuro obtundation ? related to any medication . 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 monitor [facility] ////// 04/05/20 afebrile vss iv at 75 hr/ d5 lr p.e. some increased arousability and took one oral med this am. comfortable / sats stable . no seizure like activity . tardive movements minimal. Subjective Update: 04/06/20 afebrile vss/ i.v at 75 cc hour i/os stable and na stable not rousing and unable to take meds conisistantly . presented to [facility] and medical staff the difficlt position. quality of life with peg placement issues being discussed but no wakening for 5 day in a row and failed to be weaned form i.v. no findings on ct scans of head and chest and abd pelvis . assess. 1) hypernatremia stable with iv maintenance. 2) altered mental status. not improved with correction of hypernatremia and gopi need peg tube to take in fluids adequately. 3) hx of seizure disorder / unable to take po. meds requires peg or g tube . 4) constipation stable 5)uti e coli sensitive to keflex and will switch her. 6)contractures unchanged . plan awaiting input from [facility] sec to inability to take meds p.o . and altered level of conciseness. [facility] Functional Status: Reports: Pain Controlled - Review of Systems General: Reports: No Symptoms HEENT: Reports: No Symptoms Pulmonary: Reports: No Symptoms Cardiovascular: Reports: No Symptoms Gastrointestinal: Reports: No Symptoms Genitourinary: Reports: No Symptoms Musculoskeletal: Reports: No Symptoms Skin: Reports: No Symptoms Neurological: Reports: No Symptoms, Pre-Existing Deficit, Other Psychiatric: Reports: No Symptoms - Patient Data Vitals - Most Recent: Last Vital Signs Temp 36.6 C 04/06/20 08:46 Pulse 70 04/06/20 09:19 Resp 20 04/06/20 08:46 BP 108/72 04/06/20 09:19 Pulse Ox 98 04/06/20 08:46 Weight - Most Recent: 57.516 kg I&O - Last 24 Hours: Intake & Output 04/06/20 04/06/20 04/06/20 06:59 14:59 22:59 Intake Total 700 0 Balance 700 0 Dustin Results Last 24 Hours: Microbiology 04/04/20 04:15 Urine Culture - Final Urine, Hough Cath (Indwelling) Escherichia Coli Med Orders - Current: Current Medications Acetaminophen (Tylenol) 650 mg RECTAL Q4H PRN PRN Reason: Pain Last Admin: 04/05/20 20:38 Dose: 650 mg Documented by: Docusate Sodium (Colace) 100 mg PO BID [facility] Last Admin: 04/06/20 09:13 Dose: Not Given Documented by: Dextrose/Sodium Chloride (Dextrose 5%-1/2 Ns) 1,000 mls @ 75 mls/hr IV ASDIRECTED [facility] Last Admin: 04/06/20 09:23 Dose: 75 mls/hr Documented by: Cefazolin Sodium 0.5 gm/ (Sodium Chloride) 50 mls @ 100 mls/hr IV Q12H [facility] Last Admin: 04/06/20 13:18 Dose: 100 mls/hr Documented by: Lactulose (Cephulac) 20 gm PO DAILY [facility] Last Admin: 04/06/20 09:09 Dose: 20 gm Documented by: Metoprolol Tartrate (Lopressor) 2.5 mg IVPUSH Q12H [facility] Last Admin: 04/06/20 09:19 Dose: 2.5 mg Documented by: Ondansetron HCl (Zofran) 4 mg IVPUSH Q4H PRN PRN Reason: Nausea Oxcarbazepine (Trileptal) 600 mg PO BID [facility] Last Admin: 04/06/20 09:17 Dose: Not Given Documented by: Urea 1 Applic 0 each TOP BEDTIME [facility] Last Admin: 04/06/20 01:26 Dose: Not Given Documented by: Phenobarbital (Phenobarbital Sodium) 65 mg IVPUSH BEDTIME [facility] Last Admin: 04/06/20 01:22 Dose: 65 mg Documented by: Senna (Senna) 17.2 mg PO DAILY [facility] Last Admin: 04/06/20 09:13 Dose: Not Given Documented by: Discontinued Medications Acetaminophen (Tylenol) 650 mg PO Q4H PRN PRN Reason: Fever Dextrose/Sodium Chloride (Dextrose 5%-1/2 Ns) 1,000 mls @ 125 mls/hr IV ASDIRECTED [facility] Last Admin: 04/01/20 17:54 Dose: 125 mls/hr Documented by: Dextrose/Sodium Chloride (Dextrose 5%-1/2 Ns) 1,000 mls @ 125 mls/hr IV ASDIRECTED BARBARA Dextrose/Water (Dextrose 5% In Water) 1,000 mls @ 150 mls/hr IV ASDIRECTED [facility]BAR[facility] Last Admin: 04/02/20 07:41 Dose: 200 mls/hr Documented by: Potassium Chloride 10 meq/ (Premix) 100 mls @ 100 mls/hr IV Q1H [facility] Stop: 04/02/20 14:29 Last Admin: 04/02/20 14:30 Dose: 100 mls/hr Documented by: Dextrose/Water (Dextrose 5% In Water) 1,000 mls @ 200 mls/hr IV ASDIRECTED [facility] Last Admin: 04/02/20 14:57 Dose: 200 mls/hr Documented by: Dextrose/Water (Dextrose 5% In Water) 1,000 mls @ 100 mls/hr IV ASDIRECTED [facility] Last Admin: 04/03/20 08:49 Dose: 100 mls/hr Documented by: Dextrose/Water (Dextrose 5% In Water) 1,000 mls @ 75 mls/hr IV ASDIRECTED [facility] Potassium Chloride 10 meq/ (Premix) 100 mls @ 100 mls/hr IV Q1H [facility] Stop: 04/03/20 14:29 Last Admin: 04/03/20 14:48 Dose: 100 mls/hr Documented by: Magnesium Sulfate 4 gm/ Premix 50 mls @ 12.5 mls/hr IV ONETIME ONE Stop: 04/03/20 18:29 Last Admin: 04/03/20 14:21 Dose: 12.5 mls/hr Documented by: Potassium Chloride 10 meq/ (Premix) 100 mls @ 100 mls/hr IV Q1H [facility] Stop: 04/04/20 13:59 Last Admin: 04/04/20 13:15 Dose: 100 mls/hr Documented by: Cefazolin Sodium/Dextrose 0.5 (gm/ Premix) 25 mls @ 50 mls/hr IV Q12H [facility] Last Admin: 04/05/20 05:20 Dose: 50 mls/hr Documented by: Cefazolin Sodium 0.5 gm/ (Sodium Chloride) 50 mls @ 100 mls/hr IV Q12H [facility] Last Admin: 04/06/20 01:08 Dose: 100 mls/hr Documented by: Sodium Chloride (Normal Saline) Confirm Administered Dose 50 mls @ as directed .ROUTE .STK-MED ONE Stop: 04/05/20 20:14 Last Admin: 04/05/20 20:49 Dose: Not Given Documented by: Lidocaine HCl (Xylocaine-Mpf 1%) Confirm Administered Dose 2 mls @ as directed .ROUTE .STK-MED ONE Stop: 04/06/20 01:03 Metoprolol Tartrate (Lopressor) 12.5 mg PO ONETIME ONE Stop: 04/01/20 22:07 Last Admin: 04/02/20 00:30 Dose: Not Given Documented by: Metoprolol Tartrate (Lopressor) 12.5 mg PO BID [facility] Last Admin: 04/03/20 20:59 Dose: Not Given Documented by: Metoprolol Tartrate (Lopressor) 2.5 mg IVPUSH Q6H [facility] Last Admin: 04/04/20 09:27 Dose: 2.5 mg Documented by: Valbenazine Tosylate ([Ingrezza] 40 Mg) 0 each PO DAILY [facility] Last Admin: 04/03/20 12:15 Dose: Not Given Documented by: Phenobarbital (Phenobarbital) 97.2 mg PO BEDTIME [facility] Last Admin: 04/02/20 21:10 Dose: 97.2 mg Documented by: - Exam General: Alert, Oriented HEENT: Pupils Equal, Pupils Reactive, EOMI, Mucous Membr. Moist/[place] Neck: Supple Lungs: Clear to Auscultation, Normal Respiratory Effort Cardiovascular: Regular Rate, Regular Rhythm GI/Abdominal Exam: Normal Bowel Sounds, Soft, Non-Tender, No Organomegaly, No Distention, No Abnormal Bruit, No Mass, Pelvis Stable (Female) Exam: Deferred. No: Normal External Exam, Normal Speculum Exam, Normal Bimanual Exam Back Exam: Normal Inspection, Full Range of Motion Extremities: Normal Inspection, Normal Range of Motion, Non-Tender, No Pedal Edema, Normal Capillary Refill, Limited Range of Motion Skin: Warm, Dry, Intact Wound/Incisions: Healing Well Neurological: No New Focal Deficit Psy/Mental Status: Alert, Normal Affect, Normal Mood Sepsis Event Note - Evaluation Sepsis Screening Result: No Definite Risk - Focused Exam Vital Signs: Vital Signs Temp Pulse Resp BP Pulse Ox 04/06/20 09:19 70 108/72 04/06/20 08:46 36.6 C 70 20 108/72 98 04/06/20 04:45 36.8 C 90 20 119/52 L 94 L Date Exam was Performed: 04/06/20 Time Exam was Performed: 15:43 - Problem List & Annotations (1) Chronic kidney disease (CKD), stage III (moderate) SNOMED Code(s): 653047423 Code(s): N18.3 - CHRONIC KIDNEY DISEASE, STAGE 3 (MODERATE) Status: Acute Priority: Medium Current Visit: Yes Onset Date: ~04/01/20 Annotation/Comment:: creat stable (2) Hypercalcemia SNOMED Code(s): 72763669 Code(s): E83.52 - HYPERCALCEMIA Status: Acute Priority: Medium Current Visit: Yes Onset Date: ~04/01/20 Annotation/Comment:: low protien and normal ca (3) Hypermagnesemia SNOMED Code(s): 11507910 Code(s): E83.41 - HYPERMAGNESEMIA Status: Acute Priority: Low Current Visit: Yes Onset Date: ~03/26/20 (4) Hypernatremia SNOMED Code(s): 957959355 Code(s): E87.0 - HYPEROSMOLALITY AND HYPERNATREMIA Status: Acute Priority: Low Current Visit: Yes Onset Date: ~04/01/20 Annotation/Comment:: na 140 (5) Bipolar disorder SNOMED Code(s): 28942789 Code(s): F31.9 - BIPOLAR DISORDER, UNSPECIFIED Status: Acute Priority: Low Current Visit: Yes Onset Date: ~04/02/20 Qualifiers: Active/Remission status: in remission of unspecified degree Qualified Code(s): F31.70 - Bipolar disorder, currently in remission, most recent episode unspecified (6) High anion gap metabolic acidosis SNOMED Code(s): 29655048 Code(s): E87.2 - ACIDOSIS Status: Acute Priority: Low Current Visit: Yes Onset Date: ~04/02/20 (7) Dehydration SNOMED Code(s): 23947726 Code(s): E86.0 - DEHYDRATION Status: Acute Priority: Low Current Visit: Yes Onset Date: ~04/02/20 Annotation/Comment:: dehdration resolved sec to i.v . she is unable to take in fluids reliably despite correction of hypernatremia x 3 days - Problem List Review Problem List Initiated/Reviewed/Updated: Yes - My Orders Last 24 Hours: My Active Orders 04/06/20 13:00 ceFAZolin [Ancef] 0.5 gm Sodium Chloride 0.9% [Normal Saline] 50 ml IV Q12H - Assessment Assessment:: 04/01/2020 75 year old female admitted to the floor from the ER after being sent to the ER from her primary care provider's office (Dr. Estrada). Apparently she has had a 30 pound weight loss over the last 3 months. She has not eaten much at all for the last week. She has an obvious declining level of health. Her CODE STATUS is DO NOT RESUSCITATE do not ventilate. Oral intake has been minimal in the past week Has scheduled bowel regimen, with last BM this morning No abnormal vital signs have been documented Start D5W Hough catheter to monitor urine output Encourage oral intake once more alert PRN Ativan for restlessness Monitor BMs DVT- patient non-ambulatory Patient will be admitted to medical floor on IVF repletion and monitorization. 04/02/2020 Na down from 161 to 158 K down from 3.3 to 3.1 Mg down from 2.6 to 2.1 GFR increased mildly from 20 to 22 Repeat lactic acid is normal Anion gap down from 29 to 24 BP trend 110-142/60-82 Tmax 99.5 HR trend 70-86x' SatO2 >95% on RA UO 2,300 Alertness level has not changed Patient will remain admitted to medical floor for IVF repletion and monitorization of electrolytes and mental status 04/03/2020 Oral intake has not changed Patient is non ambulatory Alertness level has not changed Discussed decreasing IV to 75 Discussed rechecking labs Discussed talking to the head person at [facility] about her being NPO and doing either a feeding tube or hospice hypernatremia corrected/ metabolic acidosis still present, and iv to maintenance rate with recheck of labs in am . no improvement in cognitive function . discussed with caregivers not showing signs of increased alertness or thirst. if no response will do ct scan of head. reevaluate cortisol / prolactin level. suspect dehydration and volume contraction more than siadh as cause of hypernatremia but rule out other causes under way. 2/hypokalemia resolving. 3/ hyper mag recheck 4/hyperchloremia resolving . fluid balance appears euvolemic. no signs sepsis. 5/ 2.4 to 1.6 creatinine normalizing . 6/no signs liver failure //atn//cva//malignancy //other endocrine abnormality. pending results sherman 04/04/[address] Estrada and Jenny she is rousable but no improvments noted in oral intake and cannot allow currently as stil npo. ct scans abd /pelvis and lungs and of brain reveal no evidence of cancer. cpr status no cpr reviewed. peg tube option seems aggressive and discussed no reasonable hope of returning to baseline as no reversable cause found. likely to recur. DR Estrada wonders about new med dc just one week ago and this is possbale side effect on level of conc. but hypernatremia not listed on side effect profile and off over one week before presenting. p.e. unchnged. lungs clear cor rrr neuro obtunded and non verbal but moves related to voices in non purposeful way . no posturing and no nystagmus and pupils reactive to light . assess. neuro obtundation ? related to any medication . 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 monitor [facility] Subjective Update: 04/05/20 afebrile vss iv at 75 hr/ d5 lr p.e. some increased arousability and took one oral med this am. comfortable / sats stable . no seizure like activity . tardive movements minimal. 04/06/20 afebrile vss/ i.v at 75 cc hour i/os stable and na stable not rousing and unable to take meds conisistantly . presented to [facility] and medical staff the difficlt position. quality of life with peg placement issues being discussed but no wakening for 5 day in a row and failed to be weaned form i.v. no findings on ct scans of head and chest and abd pelvis . assess. 1) hypernatremia stable with iv maintenance. 2) altered mental status. not improved with correction of hypernatremia and gopi need peg tube to take in fluids adequately. 3) hx of seizure disorder / unable to take po. meds requires peg or g tube . 4) constipation stable 5)uti e coli sensitive to keflex and will switch her. 6)contractures unchanged . plan awaiting input from [facility] sec to inability to take meds p.o . and altered level of conciseness. [facility] - Plan Plan:: 04/03/2020 Oral intake has not changed Patient is non ambulatory Alertness level has not changed Discussed decreasing IV to 75 Discussed rechecking labs Discussed talking to the head person at [facility] about her being NPO and doing either a feeding tube or hospice. 04/04/[address] Estrada and Jenny she is rousable but no improvments noted in oral intake and cannot allow currently as stil npo. ct scans abd /pelvis and lungs and of brain reveal no evidence of cancer. cpr status no cpr reviewed. peg tube option seems aggressive and discussed no reasonable hope of returning to baseline as no reversable cause found. likely to recur. DR Estrada wonders about new med dc just one week ago and this is possbale side effect on level of conc. but hypernatremia not listed on side effect profile and off over one week before presenting. p.e. unchnged. lungs clear cor rrr neuro obtunded and non verbal but moves related to voices in non purposeful way . no posturing and no nystagmus and pupils reactive to light . assess. neuro obtundation ? related to any medication . 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 monitor [facility] 04/04/20 04/05/20 afebrile vss iv at 75 hr/ d5 lr p.e. some increased arousability and took one oral med this am. comfortable / sats stable . no seizure like activity . tardive movements minimal. 04/06/20 afebrile vss/ i.v at 75 cc hour i/os stable and na stable not rousing and unable to take meds conisistantly . presented to [facility] and medical staff the difficlt position. quality of life with peg placement issues being discussed but no wakening for 5 day in a row and failed to be weaned form i.v. no findings on ct scans of head and chest and abd pelvis . assess. 1) hypernatremia stable with iv maintenance. 2) altered mental status. not improved with correction of hypernatremia and gopi need peg tube to take in fluids adequately. 3) hx of seizure disorder / unable to take po. meds requires peg or g tube . 4) constipation stable 5)uti e coli sensitive to keflex and will switch her. 6)contractures unchanged . plan awaiting input from [facility] to inability to take meds p.o . and altered level of conciseness. [facility]
--- NOTE | 2020-04-07 07:16 | PCM.PN ---
- General Info Date of Service: 04/07/20 Admission Dx/Problem (Free Text): Admission Diagnosis/Problem Admission Diagnosis/Problem Hypernatremia 75 year old female admitted to the floor from the ER after being sent to the ER from her primary care provider's office (Dr. Estrada). Apparently she has had a 30 pound weight loss over the last 3 months. She has not eaten much at all for the last week. She has an obvious declining level of health. Her CODE STATUS is DO NOT RESUSCITATE do not ventilate. Subjective Update: 04/07/20: No overnight or acute issues. She is essentially about the same. She opens her eyes but non-verbal and does not respond to simple commands. Spoke to her Guardian, Kay Castillo and updated her about her clinical status/progress. 04/06/20: afebrile vss/ i.v at 75 cc hour. i/os stable and na stable. not rousing and unable to take meds consistently. presented to [facility] and medical staff the difficlt position. quality of life with peg placement issues being discussed but no wakening for 5 day in a row and failed to be weaned form i.v. no findings on ct scans of head and chest and abd pelvis. - Review of Systems Systems Review Comment:: ROS: not able to obtain. Patient is non-verbal. - Patient Data Vitals - Most Recent: Last Vital Signs Temp 36.6 C 04/07/20 02:22 Pulse 80 04/07/20 02:22 Resp 20 04/07/20 02:22 BP 124/68 04/07/20 02:22 Pulse Ox 98 04/07/20 02:22 Weight - Most Recent: 56.654 kg I&O - Last 24 Hours: Intake & Output 04/06/20 04/07/20 04/07/20 22:59 06:59 14:59 Intake Total 950 970 Balance 950 970 Lab Results Last 24 Hours: Laboratory Results - last 24 hr 04/05/20 Range/Units 05:30 Phenobarbital 18.0 (10.0-40.0) ug/mL Dustin Results Last 24 Hours: Microbiology 04/04/20 04:15 Urine Culture - Final Urine, Hough Cath (Indwelling) Escherichia Coli Med Orders - Current: Current Medications Acetaminophen (Tylenol) 650 mg RECTAL Q4H PRN PRN Reason: Pain Last Admin: 04/05/20 20:38 Dose: 650 mg Documented by: Docusate Sodium (Colace) 100 mg PO BID [facility] Last Admin: 04/06/20 22:26 Dose: Not Given Documented by: Dextrose/Sodium Chloride (Dextrose 5%-1/2 Ns) 1,000 mls @ 75 mls/hr IV ASDIRECTED [facility] Last Admin: 04/06/20 22:18 Dose: 75 mls/hr Documented by: Cefazolin Sodium 0.5 gm/ (Sodium Chloride) 50 mls @ 100 mls/hr IV Q12H [facility] Last Admin: 04/07/20 00:01 Dose: 100 mls/hr Documented by: Lactulose (Cephulac) 20 gm PO DAILY [facility] Last Admin: 04/06/20 09:09 Dose: 20 gm Documented by: Metoprolol Tartrate (Lopressor) 2.5 mg IVPUSH Q12H [facility] Last Admin: 04/06/20 21:14 Dose: 2.5 mg Documented by: Ondansetron HCl (Zofran) 4 mg IVPUSH Q4H PRN PRN Reason: Nausea Oxcarbazepine (Trileptal) 600 mg PO BID [facility] Last Admin: 04/06/20 22:26 Dose: Not Given Documented by: Urea 1 Applic 0 each TOP BEDTIME [facility] Last Admin: 04/06/20 22:26 Dose: Not Given Documented by: Phenobarbital (Phenobarbital Sodium) 65 mg IVPUSH BEDTIME [facility] Last Admin: 04/06/20 21:14 Dose: 65 mg Documented by: Senna (Senna) 17.2 mg PO DAILY [facility] Last Admin: 04/06/20 09:13 Dose: Not Given Documented by: Discontinued Medications Acetaminophen (Tylenol) 650 mg PO Q4H PRN PRN Reason: Fever Dextrose/Sodium Chloride (Dextrose 5%-1/2 Ns) 1,000 mls @ 125 mls/hr IV ASDIRECTED [facility] Last Admin: 04/01/20 17:54 Dose: 125 mls/hr Documented by: Dextrose/Sodium Chloride (Dextrose 5%-1/2 Ns) 1,000 mls @ 125 mls/hr IV ASDIRECTED [facility] Dextrose/Water (Dextrose 5% In Water) 1,000 mls @ 150 mls/hr IV ASDIRECTED [facility] Last Admin: 04/02/20 07:41 Dose: 200 mls/hr Documented by: Potassium Chloride 10 meq/ (Premix) 100 mls @ 100 mls/hr IV Q1H [facility] Stop: 04/02/20 14:29 Last Admin: 04/02/20 14:30 Dose: 100 mls/hr Documented by: Dextrose/Water (Dextrose 5% In Water) 1,000 mls @ 200 mls/hr IV ASDIRECTED [facility] Last Admin: 04/02/20 14:57 Dose: 200 mls/hr Documented by: Dextrose/Water (Dextrose 5% In Water) 1,000 mls @ 100 mls/hr IV ASDIRECTED [facility] Last Admin: 04/03/20 08:49 Dose: 100 mls/hr Documented by: Dextrose/Water (Dextrose 5% In Water) 1,000 mls @ 75 mls/hr IV ASDIRECTED [facility] Potassium Chloride 10 meq/ (Premix) 100 mls @ 100 mls/hr IV Q1H [facility] Stop: 04/03/20 14:29 Last Admin: 04/03/20 14:48 Dose: 100 mls/hr Documented by: Magnesium Sulfate 4 gm/ Premix 50 mls @ 12.5 mls/hr IV ONETIME ONE Stop: 04/03/20 18:29 Last Admin: 04/03/20 14:21 Dose: 12.5 mls/hr Documented by: Potassium Chloride 10 meq/ (Premix) 100 mls @ 100 mls/hr IV Q1H [facility] Stop: 04/04/20 13:59 Last Admin: 04/04/20 13:15 Dose: 100 mls/hr Documented by: Cefazolin Sodium/Dextrose 0.5 (gm/ Premix) 25 mls @ 50 mls/hr IV Q12H [facility] Last Admin: 04/05/20 05:20 Dose: 50 mls/hr Documented by: Cefazolin Sodium 0.5 gm/ (Sodium Chloride) 50 mls @ 100 mls/hr IV Q12H [facility] Last Admin: 04/06/20 01:08 Dose: 100 mls/hr Documented by: Sodium Chloride (Normal Saline) Confirm Administered Dose 50 mls @ as directed .ROUTE .STK-MED ONE Stop: 04/05/20 20:14 Last Admin: 04/05/20 20:49 Dose: Not Given Documented by: Lidocaine HCl (Xylocaine-Mpf 1%) Confirm Administered Dose 2 mls @ as directed .ROUTE .STK-MED ONE Stop: 04/06/20 01:03 Metoprolol Tartrate (Lopressor) 12.5 mg PO ONETIME ONE Stop: 04/01/20 22:07 Last Admin: 04/02/20 00:30 Dose: Not Given Documented by: Metoprolol Tartrate (Lopressor) 12.5 mg PO BID [facility] Last Admin: 04/03/20 20:59 Dose: Not Given Documented by: Metoprolol Tartrate (Lopressor) 2.5 mg IVPUSH Q6H [facility] Last Admin: 04/04/20 09:27 Dose: 2.5 mg Documented by: Valbenazine Tosylate ([Ingrezza] 40 Mg) 0 each PO DAILY [facility] Last Admin: 04/03/20 12:15 Dose: Not Given Documented by: Phenobarbital (Phenobarbital) 97.2 mg PO BEDTIME [facility] Last Admin: 04/02/20 21:10 Dose: 97.2 mg Documented by: - Exam General: No Acute Distress, Lethargic, Other (opens eyes with verbal calls). No: Cooperative HEENT: Pupils Equal, Pupils Reactive. No: Mucous Membr. Moist/[place] Neck: Supple Lungs: Clear to Auscultation, Normal Respiratory Effort Cardiovascular: Regular Rate, Regular Rhythm GI/Abdominal Exam: Normal Bowel Sounds, Soft, Non-Tender, No Organomegaly (Female) Exam: Deferred Back Exam: Decreased Range of Motion Extremities: Normal Inspection, Non-Tender, No Pedal Edema Peripheral Pulses: 2+: Dorsalis Pedis (L), Dorsalis Pedis (R) Skin: Warm, Dry, Intact Neurological: Other (not able perform due to lack of cooperation) Psy/Mental Status: Other (lethargic). No: Normal Affect Sepsis Event Note - Evaluation Sepsis Screening Result: No Definite Risk - Focused Exam Vital Signs: Vital Signs Temp Pulse Resp BP Pulse Ox 04/07/20 02:22 36.6 C 80 20 124/68 98 04/06/20 21:16 37.1 C 110 H 22 H 123/65 97 04/06/20 21:14 110 H 123/65 Date Exam was Performed: 04/07/20 Time Exam was Performed: 10:56 - Problem List Review Problem List Initiated/Reviewed/Updated: Yes - Assessment Assessment:: 75 year old female admitted to the floor from the ER after being sent to the ER from her primary care provider's office (Dr. Estrada). Apparently she has had a 30 pound weight loss over the last 3 months. She has not eaten much at all for the last week. She has an obvious declining level of health. Her CODE STATUS is DO NOT RESUSCITATE do not ventilate. Her oral intake has been minimal in the past week. Has scheduled bowel regimen, with last BM on 04/02/20. No abnormal vital signs have been documented. Assessment: * AMS 2/2 metabolic encephalopathy. She is about the same. Sodium resolved but the rest of her e-lytes remain abnormal. She is currently on D5-1/2 NS for maintenance since she is NPO. No improvement in cognitive function. Head CT scan is negative. discussed with caregivers not showing signs of increased alertness or thirst. * Hypernatremia, resolved. Suspect dehydration and volume contraction more than siadh as cause of hypernatremia but rule out other causes under way. She is currently on D5-1/2 NS for maintenance. * Acute kidney injury. 2/2 Dehydration/Intravascular Depletion, improving. Cr is now down to 1.1. Continue IV fluids for hydration. * Metabolic acidosis still present, she could benefit with bicarb but will not offer since Guardian has elected for her to be on hospice care no improvement in cognitive function. She is not eating or drinking. Dr. Emerson discussed with caregivers not showing signs of increased alertness or thirst. Cortisol/prolactin levels both within normal limits. * Hypokalemia 2/2 no oral intake, resolved. * Hypermagnesemia 2/2 no oral intake, resolved. * Hyperchloremia, on going due to poor oral intake. * Constipation, last BM 04/02/2020 * UTI 2/2 E. coli , currently on IV antibiotic with Rocephin. First dose yesterday. Goal 3 days course. * Hx of seizure disorder/unable to take po. meds requires peg or g tube. Guardian, refused PEG tube. Currently on IVP Phenobarbital. * Contractures, unchanged . Plan: * Pending acceptance to hospice care * Spoke to Guardian, Kay Castillo; offered comfort measures--she would like to take up with the "Team" * Patient is NPO due to inability to so we will discontinue all her oral meds * Continue IV fluids * Overall prognosis is poor
--- NOTE | 2020-04-07 11:02 | PCM.SN.2 ---
- Free Text/Narrative Note: In room #9 at 1026 IV start to left wrist 24ga. good flush good blood return out of room at 1056.
[2020-04-07] MEDS: Metoprolol Tartrate 5 MG/5 ML SDV IVPUSH SCH ×3 (13:40→23:14)
[2020-04-07] MEDS: Lactulose Soln 10 GM/15 ML 30 ML UD Cup PO SCH (18:34)
[2020-04-07] MEDS: Sennosides 8.6 MG Tab PO SCH (18:34)
[2020-04-07] MEDS: OXcarbazepine 300 MG Tab PO SCH (18:34)
[2020-04-07] MEDS: Docusate Sodium 100 MG Cap PO SCH (18:34)
[2020-04-07] MEDS ORDERED: LORazepam 2 MG/ML SDV IVPUSH PRN (19:18)
[2020-04-07] MEDS ORDERED: Morphine 2 MG/ML SYRINGE IVPUSH PRN (19:19)
[2020-04-07] MEDS: Dextrose 5%-0.45% NaCl 1,000 ML IV SCH (20:54)
[2020-04-07] MEDS: PHENobarbital Sodium 65 MG/ML SDV IVPUSH SCH (21:04)
[2020-04-07] MEDS: UREA TOP SCH (21:14)
--- NOTE | 2020-04-08 07:10 | PCM.DCSUM1 ---
Discharge Summary - Hospital Course Brief History: 75 year old female admitted to the floor from the ER after being sent to the ER from her primary care provider's office (Dr. Estrada). Apparently she has had a 30 pounds weight loss over the last 3 months. She has not eaten much at all for the last week. She has an obvious declining level of health. Diagnosis: Stroke: No Modified Hardin Scale: No Symptoms at All Modified Tony Scale Score: 0 - Discharge Data Discharge Date: 04/08/20 Discharge Disposition: Home, Self-Care 01 Condition: Fair - Referral to Home Health Primary Care Physician: Mark Estrada MD - Patient Summary/Data Operative Procedure(s) Performed: None Complications: None Consults: Consultations 04/02/20 17:40 ANALYSIS LEAD Evaluation and Treatment [CONS] Routine 04/06/20 10:16 Consult to Case Management/Concrete Batch Plant Operator [CONS] Routine 04/06/20 16:51 Consult to Hospice [CONS] Routine Labs Pending at D/C: None Recommended Follow-up Testing/Procedures: None Planned Operative Procedure(s) after DC: None Hospital Course: Patient was primarily admitted for hypernatremia in the setting of acute on chronic kidney injury essentially due to declining health and from not eating and drinking adequately. She was volume resuscitated and was appropriately managed to correct her abnormal sodium. Her most recent level was noted at 143. During this admission, she was diagnosed with UTI and started on intravenous antibiotic. However despite aggressive management, no significant improvement on her clinical status. Dr. Emerson discussed options with the patient's Guardian, Kay and she elected for patient to go on hospice and decided against any invasive procedures to include life prolonging measures. Patient eventually went into comfort measures after I spoke and updated her Guardian yesterday morning. Her hospital course was uncomplicated. Unfortunately, she did not improve clinically. Her overall prognosis remains poor. - Patient Instructions Diet: NPO Activity: Bedrest Driving: Do Not Drive Notify Provider of: Fever, Increased Pain, Nausea and/or Vomiting - Discharge Plan *PRESCRIPTION DRUG MONITORING PROGRAM REVIEWED*: Not Applicable *COPY OF PRESCRIPTION DRUG MONITORING REPORT IN PATIENT AICHA: Not Applicable Prescriptions/Med Rec: LORazepam [Ativan ORAL Concentrate 1MG/0.5 ML U/D] 1 mg PO Q4H PRN #15 cont PRN Reason: comfort measures Morphine [Morphine 20 MG/ML Soln] 100 mg PO ASDIRECTED PRN #1 ml PRN Reason: Comfort measuers Scopolamine 1 each TD Q72H PRN #5 patch.td.3 PRN Reason: comfort measures Home Medications: Home Meds Urea [Urea 20% Crm] 1 applic TOP BEDTIME 04/01/20 [History] LORazepam [Ativan ORAL Concentrate 1MG/0.5 ML U/D] 1 mg PO Q4H PRN #15 cont 04/08/20 [Rx] Morphine [Morphine 20 MG/ML Soln] 100 mg PO ASDIRECTED PRN #1 ml 04/08/20 [Rx] Scopolamine 1 each TD Q72H PRN #5 patch.td.3 04/08/20 [Rx] Oxygen Therapy Mode: Room Air Patient Handouts: Acute Kidney Injury, Adult, Hypercalcemia, Hypernatremia, [id number], Constipation, Adult, [id number], Dehydration, Adult, [id number], Metabolic Acidosis, End-of-Life Care Referrals: Mark Estrada MD [Primary Care Provider] - () - Discharge Summary/Plan Comment DC Time >30 min.: No Discharge Summary/Plan Comment: Discharge back to [facility] under with comfort measures. Her guardian understood no po meds and she will be transitioned to hospice care as soon as she gets back to [facility]. - General Info Date of Service: 04/08/20 Admission Dx/Problem (Free Text: Admission Diagnosis/Problem Admission Diagnosis/Problem Hypernatremia 75 year old female admitted to the floor from the ER after being sent to the ER from her primary care provider's office (Dr. Estrada). Apparently she has had a 30 pound weight loss over the last 3 months. She has not eaten much at all for the last week. She has an obvious declining level of health. Her CODE STATUS is DO NOT RESUSCITATE do not ventilate. Subjective Update: 04/08/20: No change in condition. She remains comfortable and afebrile. 04/07/20: No overnight or acute issues. She is essentially about the same. She opens her eyes but non-verbal and does not respond to simple commands. Spoke to her Guardian, Kay Castillo and updated her about her clinical status/progress. 04/06/20: afebrile vss/ i.v at 75 cc hour. i/os stable and na stable. not rousing and unable to take meds consistently. presented to [facility] and medical staff the difficlt position. quality of life with peg placement issues being discussed but no wakening for 5 day in a row and failed to be weaned form i.v. no findings on ct scans of head and chest and abd pelvis. Functional Status: Reports: Pain Controlled - Review of Systems General: Denies: Fever, Chills HEENT: Reports: No Symptoms Pulmonary: Denies: Shortness of Breath Cardiovascular: Denies: Chest Pain Gastrointestinal: Denies: Abdominal Pain, Nausea, Vomiting Genitourinary: Reports: No Symptoms Musculoskeletal: Reports: No Symptoms Skin: Reports: No Symptoms Neurological: Reports: No Symptoms Psychiatric: Reports: Other (sedation). Denies: Depression, Anxiety, Agitation Systems Review Comment: ROS limited by lethargy and lack of cooperation. She is non-verbal. - Patient Data Vitals - Most Recent: Last Vital Signs Temp 36.3 C 04/08/20 03:00 Pulse 89 04/08/20 03:00 Resp 16 04/08/20 03:00 BP 123/87 04/08/20 03:00 Pulse Ox 97 04/08/20 03:00 Weight - Most Recent: 56.064 kg I&O - Last 24 hours: Intake & Output 04/07/20 04/08/20 04/08/20 22:59 06:59 14:59 Intake Total 523 866 Balance 523 866 Med Orders - Current: Current Medications Acetaminophen (Tylenol) 650 mg RECTAL Q4H PRN PRN Reason: Pain Last Admin: 04/05/20 20:38 Dose: 650 mg Documented by: Dextrose/Sodium Chloride (Dextrose 5%-1/2 Ns) 1,000 mls @ 75 mls/hr IV ASDIRECTED [facility] Last Admin: 04/07/20 20:54 Dose: 75 mls/hr Documented by: Cefazolin Sodium 0.5 gm/ (Sodium Chloride) 50 mls @ 100 mls/hr IV Q12H [facility] Last Admin: 04/08/20 00:07 Dose: 100 mls/hr Documented by: Lorazepam (Ativan) 0.5 mg IVPUSH Q4H PRN; Protocol PRN Reason: comfort measures Last Admin: 04/08/20 00:48 Dose: 0.5 mg Documented by: Metoprolol Tartrate (Lopressor) 2.5 mg IVPUSH Q12H [facility] Last Admin: 04/07/20 23:14 Dose: 2.5 mg Documented by: Morphine Sulfate (Morphine) 0.5 mg IVPUSH Q4H PRN PRN Reason: comfort measures Ondansetron HCl (Zofran) 4 mg IVPUSH Q4H PRN PRN Reason: Nausea Urea 1 Applic 0 each TOP BEDTIME [facility] Last Admin: 04/07/20 21:14 Dose: Not Given Documented by: Phenobarbital (Phenobarbital Sodium) 65 mg IVPUSH BEDTIME [facility] Last Admin: 04/07/20 21:04 Dose: 65 mg Documented by: Discontinued Medications Acetaminophen (Tylenol) 650 mg PO Q4H PRN PRN Reason: Fever Docusate Sodium (Colace) 100 mg PO BID [facility] Last Admin: 04/07/20 18:34 Dose: Not Given Documented by: Dextrose/Sodium Chloride (Dextrose 5%-1/2 Ns) 1,000 mls @ 125 mls/hr IV ASDIRECTED [facility] Last Admin: 04/01/20 17:54 Dose: 125 mls/hr Documented by: Dextrose/Sodium Chloride (Dextrose 5%-1/2 Ns) 1,000 mls @ 125 mls/hr IV ASDIRECTED [facility] Dextrose/Water (Dextrose 5% In Water) 1,000 mls @ 150 mls/hr IV ASDIRECTED [facility] Last Admin: 04/02/20 07:41 Dose: 200 mls/hr Documented by: Potassium Chloride 10 meq/ (Premix) 100 mls @ 100 mls/hr IV Q1H [facility] Stop: 04/02/20 14:29 Last Admin: 04/02/20 14:30 Dose: 100 mls/hr Documented by: Dextrose/Water (Dextrose 5% In Water) 1,000 mls @ 200 mls/hr IV ASDIRECTED [facility] Last Admin: 04/02/20 14:57 Dose: 200 mls/hr Documented by: Dextrose/Water (Dextrose 5% In Water) 1,000 mls @ 100 mls/hr IV ASDIRECTED [facility] Last Admin: 04/03/20 08:49 Dose: 100 mls/hr Documented by: Dextrose/Water (Dextrose 5% In Water) 1,000 mls @ 75 mls/hr IV ASDIRECTED [facility] Potassium Chloride 10 meq/ (Premix) 100 mls @ 100 mls/hr IV Q1H [facility] Stop: 04/03/20 14:29 Last Admin: 04/03/20 14:48 Dose: 100 mls/hr Documented by: Magnesium Sulfate 4 gm/ Premix 50 mls @ 12.5 mls/hr IV ONETIME ONE Stop: 04/03/20 18:29 Last Admin: 04/03/20 14:21 Dose: 12.5 mls/hr Documented by: Potassium Chloride 10 meq/ (Premix) 100 mls @ 100 mls/hr IV Q1H [facility] Stop: 04/04/20 13:59 Last Admin: 04/04/20 13:15 Dose: 100 mls/hr Documented by: Cefazolin Sodium/Dextrose 0.5 (gm/ Premix) 25 mls @ 50 mls/hr IV Q12H [facility] Last Admin: 04/05/20 05:20 Dose: 50 mls/hr Documented by: Cefazolin Sodium 0.5 gm/ (Sodium Chloride) 50 mls @ 100 mls/hr IV Q12H [facility] Last Admin: 04/06/20 01:08 Dose: 100 mls/hr Documented by: Sodium Chloride (Normal Saline) Confirm Administered Dose 50 mls @ as directed .ROUTE .STK-MED ONE Stop: 04/05/20 20:14 Last Admin: 04/05/20 20:49 Dose: Not Given Documented by: Lidocaine HCl (Xylocaine-Mpf 1%) Confirm Administered Dose 2 mls @ as directed .ROUTE .STK-MED ONE Stop: 04/06/20 01:03 Lactulose (Cephulac) 20 gm PO DAILY [facility] Last Admin: 04/07/20 18:34 Dose: Not Given Documented by: Metoprolol Tartrate (Lopressor) 12.5 mg PO ONETIME ONE Stop: 04/01/20 22:07 Last Admin: 04/02/20 00:30 Dose: Not Given Documented by: Metoprolol Tartrate (Lopressor) 12.5 mg PO BID [facility] Last Admin: 04/03/20 20:59 Dose: Not Given Documented by: Metoprolol Tartrate (Lopressor) 2.5 mg IVPUSH Q6H [facility] Last Admin: 04/04/20 09:27 Dose: 2.5 mg Documented by: Metoprolol Tartrate (Lopressor) 2.5 mg IVPUSH Q12H [facility] Last Admin: 04/07/20 18:34 Dose: Not Given Documented by: Oxcarbazepine (Trileptal) 600 mg PO BID [facility] Last Admin: 04/07/20 18:34 Dose: Not Given Documented by: Valbenazine Tosylate ([Ingrezza] 40 Mg) 0 each PO DAILY [facility] Last Admin: 04/03/20 12:15 Dose: Not Given Documented by: Phenobarbital (Phenobarbital) 97.2 mg PO BEDTIME [facility] Last Admin: 04/02/20 21:10 Dose: 97.2 mg Documented by: Senna (Senna) 17.2 mg PO DAILY [facility] Last Admin: 04/07/20 18:34 Dose: Not Given Documented by: - Exam General: Reports: Lethargic HEENT: Reports: Pupils Equal, Pupils Reactive. Denies: Mucous Membr. Moist/[place] Neck: Reports: Supple Lungs: Reports: Clear to Auscultation, Normal Respiratory Effort, Decreased Breath Sounds Cardiovascular: Reports: Regular Rate, Regular Rhythm GI/Abdominal Exam: Normal Bowel Sounds, Soft, Non-Tender, No Organomegaly, No Distention (Female) Exam: Deferred Rectal (Female) Exam: Deferred Back Exam: Reports: Decreased Range of Motion Extremities: Normal Inspection, Non-Tender, No Pedal Edema, Normal Capillary Refill Skin: Reports: Warm, Dry, Intact Psy/Mental Status: Reports: Other (Not appropriate) Physical Findings Comments:: Physical exam is limited due to non-verbal status and lack of cooperation. *Q Meaningful Use (DIS) - VTE *Q VTE Mechanical Contraindications *Q: Bilateral Lower Deformity VTE Anticoagulation Contraindications: Med/TX Not Indicated/Need
[2020-04-08 10:20] VITALS: BP 119/72; PULSE 92
[2020-04-08] MEDS: Metoprolol Tartrate 5 MG/5 ML SDV IVPUSH SCH (10:58)
== END 2020-04-08 12:30 | disposition home or self-care (01) | DRG 682 ==
LOC: JD.ED 17:02 → JD.MS 20:13
PROVIDERS: ADMIT Internal Medicine; ATTEND Internal Medicine
DX: N17.9 Acute kidney failure, unspecified (principal); G93.41 Metabolic encephalopathy; E02 Subclinical iodine-deficiency hypothyroidism; E87.0 Hyperosmolality and hypernatremia; G81.94 Hemiplegia, unspecified affecting left nondominant side; E87.2 Acidosis; N39.0 Urinary tract infection, site not specified; R62.50 Unspecified lack of expected normal physiological development in childhood; E87.3 Alkalosis; N18.3 Chronic kidney disease, stage 3 (moderate); Z99.3 Dependence on wheelchair; Z74.01 Bed confinement status; R32 Unspecified urinary incontinence; Z87.440 Personal history of urinary (tract) infections; T73.0XXA Starvation, initial encounter; Z51.5 Encounter for palliative care; E86.0 Dehydration; Z79.899 Other long term (current) drug therapy; Z79.890 Hormone replacement therapy; B96.20 Unspecified Escherichia coli [E. coli] as the cause of diseases classified elsewhere; Z20.828 Contact with and (suspected) exposure to other viral communicable diseases; E83.41 Hypermagnesemia; E83.52 Hypercalcemia; K59.01 Slow transit constipation; M24.562 Contracture, left knee; M24.561 Contracture, right knee; F31.9 Bipolar disorder, unspecified; G40.909 Epilepsy, unspecified, not intractable, without status epilepticus; E03.9 Hypothyroidism, unspecified; Z66 Do not resuscitate; X58.XXXA Exposure to other specified factors, initial encounter; D75.89 Other specified diseases of blood and blood-forming organs; Z90.13 Acquired absence of bilateral breasts and nipples; Z95.0 Presence of cardiac pacemaker; Z85.3 Personal history of malignant neoplasm of breast
CPT/HCPCS: 36415; 36600; 51702; 71045; 80053; 80156; 81001; 82009; 82803; 83605; 83690; 83735; 83880; 83930; 84300; 84439; 84443; 84484; 85025; 85610; 85730; 86140; 87086; 93005; 96360; 96361; 99285; J7042; U0002; 36410; 70450; 70450-26; 71250; 71250-26; 74018; 74018-26; 74176; 74176-26; 80048; 80184; 82330; 82533; 82607; 82746; 84100; 84146; 87088; 87186; 87641; 92610-GN; A9270-GY; J0690; J2001; J2060; J2560; J3475; J3480; J3490; J7050; J7060